=== PATIENT | male | born 1940 | race Caucasian/White ===

== ENCOUNTER 2019-11-04 07:43 | Inpatient (IN) | payer OTHER ==
[~2019-11-04] VITALS: Ht 182.9 cm; Wt 90.7 kg
[~2019-11-04 07:43] MED LIST: ABAC300; ACID REDUCER 1150 MG PO; ARIP10 PO; ATOR40TA PO; Alprazolam1 MG PO; CEFP200 PO; CEFU500 PO; CELE200 PO; CEPH500 PO; CHOL10002; CODACE30 PO; DOCSEN; DOCU100 PO; DULO60 PO; DULOXETINE HCL60 MG PO; FENO160 PO; FURO40 PO; GAVILYTE-G SO4000 ML PO; HEARTBURN RELI150 MG PO; MAGCHL64ER; MAGCHL64ER PO; METF500 PO; METO100ER; METO50ER PO; Metformin HCl1000 MG PO; NIACIN ER1000 MG PO; OXYC10ER PO; OXYC10TA19; Oxybutynin Chlo15 MG PO; Oxybutynin Chlor5 M1 PO; PIOG15 PO; PIOGLITAZONE-M1 EAC1 PO; POTCHL10ER PO; QUIN10 PO; Quinapril HCl10 MG PO; Simvastatin40 MG PO; Synthroid25 MCG PO; TRAZ50; TRAZ50 PO; Toprol Xl50 MG PO; Triamterene W/1 EACH; Ultram50 MG PO; VITAMIN D31000 UNI1 PO; WARF5; WARF5 PO
[2019-11-04 08:16] LABS: BASOPHILS ABSOLUTE AUTO 0.01 K/mm3 (0.00-0.23); BASOPHILS PERCENT AUTO 0 % (0-2); EOSINOPHILS ABSOLUTE AUTO 0.08 K/mm3 (0.00-0.68); EOSINOPHILS PERCENT AUTO 1 % (0-6); Hemoglobin 13.6 g/dL (13.5-17.5); IMMATURE GRAN ABSOLUTE AUTO 0.56 K/mm3 (0.00-0.10); IMMATURE GRAN PERCENT AUTO 5 % (0-1); LYMPHOCYTES ABSOLUTE AUTO 2.17 K/mm3 (0.84-5.20); LYMPHOCYTES PERCENT AUTO 20 % (21-46); MONOCYTES ABSOLUTE AUTO 3.39 K/mm3 (0.16-1.47); MONOCYTES PERCENT AUTO 31 % (4-13); Mean Corpuscular HGB Conc 31.6 g/dL (31.5-36.5); Mean Corpuscular Volume 92 fL (80-100); Mean Platelet Volume 10.4 fL (9.1-12.4); NEUTROPHILS ABSOLUTE AUTO 4.64 K/mm3 (1.96-9.15); NEUTROPHILS PERCENT AUTO 43 % (41-73); Platelet Count 146 K/mm3 (150-400); RDW Coefficient Variation 13.2 % (11.7-14.2); RDW Standard Deviation 44.5 fL (35.1-46.3); Red Blood Cell Count 4.69 M/mm3 (4.30-5.90); White Blood Cell Count 10.85 K/mm3 (4.00-11.30)
[2019-11-04 08:29] LABS: International Normalized Ratio 1.33
[2019-11-04 08:32] LABS: Anion Gap 6 mmol/L (6-16); Blood Urea Nitrogen 15 mg/dL (8-24); Bun/Creatinine Ratio 17.1 (12.0-20.0); CO2, Blood 27 mmol/L (21-32); Calcium, Blood 9.7 mg/dL (8.5-10.1); Chloride, Blood 106 mmol/L (98-108); Creatinine, Blood 0.88 mg/dL (0.60-1.20); Glomerular Filtration Rate >60 (60-); Glucose, Blood 107 mg/dL (70-99); Potassium, Blood 4.4 mmol/L (3.5-5.5); Sodium, Blood 139 mmol/L (136-145)
[2019-11-04] MEDS ORDERED: Vitamin B-121000 MCG PO (12:07)
[2019-11-04] MEDS ORDERED: OMEP20ER PO (12:07)
[2019-11-04 17:19] LABS: Hematocrit 42.1 % (37.0-53.0); Hemoglobin 13.4 g/dL (13.5-17.5)
--- NOTE | 2019-11-04 17:40 | NUR ---
SUMMARY REPOSITIONED IN BED, EATING DINNER, TOLERATING WELL, DENIES ANY SOB, STATES HE'S NOT TAKING DEEPER BREATHS DUE TO INCREASED PAIN WITH INHALATION, DENIES ANY NEED FOR PAIN MEDS AT THIS TIME, NON ADHERENT DSG APPLIED TO SKIN TEAR ON L WRIST, SATE 98% ON 3L O2 VIA NC, NO DYSPNEA NOTED, NOT ACUTE CHANGES THIS SHIFT.
--- NOTE | 2019-11-05 04:15 | NUR ---
SHIFT SUMMARY PT AAOX4. PT DENIES NEEDING ANYTHING FOR PAIN BUT IS UNCOMFORTABLE WITH REPOSITIONING. CRADLING LEFT SIDE. GUARDING WITH MOVEMENT. DENIES SOB DURING SHIFT. TOLERATING PO FLUIDS WELL, NEEDS ASSISTANCE WITH CUP AT TIMES. INC OF VOID DURING SHIFT. USES CALL LIGHT APPROPRIATLY. 3L 02 ON DURING SHIFT. SATS REMAIN ABOVE 92%
[2019-11-05 04:40] LABS: Hematocrit 38.7 % (37.0-53.0); Hemoglobin 12.4 g/dL (13.5-17.5); Mean Corpuscular Volume 90 fL (80-100); Mean Platelet Volume 10.2 fL (9.1-12.4); Platelet Count 111 K/mm3 (150-400); RDW Coefficient Variation 13.1 % (11.7-14.2); RDW Standard Deviation 43.2 fL (35.1-46.3); Red Blood Cell Count 4.28 M/mm3 (4.30-5.90); White Blood Cell Count 12.76 K/mm3 (4.00-11.30)
[2019-11-05 04:51] LABS: Anion Gap 6 mmol/L (6-16); Blood Urea Nitrogen 15 mg/dL (8-24); Bun/Creatinine Ratio 18.1 (12.0-20.0); CO2, Blood 26 mmol/L (21-32); Chloride, Blood 103 mmol/L (98-108); Creatinine, Blood 0.83 mg/dL (0.60-1.20); Glomerular Filtration Rate >60 (60-); Glucose, Blood 124 mg/dL (70-99); Potassium, Blood 4.4 mmol/L (3.5-5.5); Sodium, Blood 135 mmol/L (136-145)
[2019-11-05 04:57] LABS: International Normalized Ratio 1.32; Prothrombin Time Results 13.9 Sec (9.7-11.5)
--- NOTE | 2019-11-05 09:38 | NUR ---
0911 NOTIFIED BY PCU CONFIDENTIAL INVESTIGATOR THAT PTS HR IS 140 AND HAD 9 BEAT RUN OF VTACH. PT DENIES ANY CHANGE IN HOW HE IS FEELING. VS CHECKED. PT 3 PERSON MAX ASSIST BACK TO BED. DR TRIANA NOTIFIED AND NEW ORDERS RECEIVED
--- NOTE | 2019-11-05 17:33 | NUR ---
SUMMARY PT TELLS ME HE FEELS A LITTLE LESS PAINFUL TODAY THEN HE FELT YESTERDAY. PT REQUIRS MAX ASSIST TO REPOSITION IN BED. PT DECLINES A SLING TO LEFT ARM. INCONTINENT OF URINE. PT GOOD EFFORT ON INCENTIVE SPIROMETER WHEN ASKED TO USE
--- NOTE | 2019-11-06 04:10 | NUR ---
SHIFT SUMMARY PT A/O X3-4. TOLERATING PO INTAKE. ATTENS IN PLACE FOR INCONTINENCE, CHANGED PRN. PAIN MANAGED WITH PO PAIN MED PER ORDERS. PT HAS BEEN USING 2L 02 NC TO MAINTAIN O2 SAT ABOVE 92%. BIOX IN PLACE AT BEDSIDE. TELE ON DURING THE NIGHT; PT HAS BEEN IN A-FIB PER BOARD MILL SUPERVISOR. NO ACUTE CHANGES OVERNIGHT.
[2019-11-06 05:01] LABS: BASOPHILS ABSOLUTE AUTO 0.02 K/mm3 (0.00-0.23); BASOPHILS PERCENT AUTO 0 % (0-2); EOSINOPHILS ABSOLUTE AUTO 0.01 K/mm3 (0.00-0.68); EOSINOPHILS PERCENT AUTO 0 % (0-6); Hematocrit 37.4 % (37.0-53.0); Hemoglobin 11.9 g/dL (13.5-17.5); IMMATURE GRAN ABSOLUTE AUTO 0.33 K/mm3 (0.00-0.10); IMMATURE GRAN PERCENT AUTO 3 % (0-1); LYMPHOCYTES ABSOLUTE AUTO 1.95 K/mm3 (0.84-5.20); LYMPHOCYTES PERCENT AUTO 15 % (21-46); MONOCYTES ABSOLUTE AUTO 6.47 K/mm3 (0.16-1.47); MONOCYTES PERCENT AUTO 50 % (4-13); Mean Corpuscular HGB 28.7 pg (26.0-34.0); Mean Corpuscular HGB Conc 31.8 g/dL (31.5-36.5); Mean Corpuscular Volume 90 fL (80-100); Mean Platelet Volume 10.6 fL (9.1-12.4); NEUTROPHILS ABSOLUTE AUTO 4.09 K/mm3 (1.96-9.15); NEUTROPHILS PERCENT AUTO 32 % (41-73); Platelet Count 95 K/mm3 (150-400); RDW Standard Deviation 42.6 fL (35.1-46.3); Red Blood Cell Count 4.14 M/mm3 (4.30-5.90); White Blood Cell Count 12.87 K/mm3 (4.00-11.30)
[2019-11-06 05:20] LABS: International Normalized Ratio 1.21; Prothrombin Time Results 12.8 Sec (9.7-11.5)
[2019-11-06 05:24] LABS: Anion Gap 5 mmol/L (6-16); Blood Urea Nitrogen 17 mg/dL (8-24); Bun/Creatinine Ratio 19.8 (12.0-20.0); CO2, Blood 28 mmol/L (21-32); Calcium, Blood 9.2 mg/dL (8.5-10.1); Chloride, Blood 101 mmol/L (98-108); Creatinine, Blood 0.86 mg/dL (0.60-1.20); Glomerular Filtration Rate >60 (60-); Glucose, Blood 114 mg/dL (70-99); Potassium, Blood 4.5 mmol/L (3.5-5.5); Sodium, Blood 134 mmol/L (136-145)
--- NOTE | 2019-11-06 13:00 | NUR ---
PT NOTED TO HAVE INCREASED HEART RATE RANGING FROM 140-160 PER TELE. PT ASSYMPTOMATIC. BP 132/82. DR GRIDER NOTIFIED, SEE ORDERS. PT MED WITH IV MEDICATION ORDERED. DISCUSSED WITH FIRER LOW PRESSURE. FIRER LOW PRESSURE REPORTED PT HAVING 18 BEAT RUN OF V TACH, WILL DISCUSS WITH TELE AND
--- NOTE | 2019-11-06 13:19 | NUR ---
PT CONT TO BE ASSYMPTOMATIC. PT HR DOWN TO 105-115. MANUAL BP 130/80. DR NOTIFIED OF PT OF PT'S VS AND RUN OF V-TACH. DISCUSSED LABS FROM THIS AM. REPORTS TO ADD MAGNESIUM TO AM LABS. SEE ORDER. LAB NOTIFIED.
--- NOTE | 2019-11-06 16:50 | NUR ---
SHIFT SUMMARY PT BEEN EATING AND DRINKING, VOIDING. PT BEEN REPOSITIONED MULT TIMES. PT WORKED WITH OT THIS AFTERNOON, REFUSED PHYSICAL THERAPY THIS AM. PT HAD INCREASED HR WHICH PT WAS MEDICATED WITH IV LOPRESSOR FOR. PT TOLERATED WELL AND HR DECREASED. PT HAD MULT DR TO SEE PT TODAY. PT BEEN RESTING QUIETLY WHEN NOT DISTURBED. CALL LIGHT IN REACH.
[2019-11-07 04:37] LABS: BASOPHILS ABSOLUTE AUTO 0.02 K/mm3 (0.00-0.23); BASOPHILS PERCENT AUTO 0 % (0-2); EOSINOPHILS ABSOLUTE AUTO 0.09 K/mm3 (0.00-0.68); EOSINOPHILS PERCENT AUTO 1 % (0-6); Hematocrit 38.3 % (37.0-53.0); Hemoglobin 12.1 g/dL (13.5-17.5); IMMATURE GRAN ABSOLUTE AUTO 0.36 K/mm3 (0.00-0.10); IMMATURE GRAN PERCENT AUTO 3 % (0-1); LYMPHOCYTES ABSOLUTE AUTO 2.33 K/mm3 (0.84-5.20); LYMPHOCYTES PERCENT AUTO 17 % (21-46); MONOCYTES ABSOLUTE AUTO 4.57 K/mm3 (0.16-1.47); MONOCYTES PERCENT AUTO 33 % (4-13); Mean Corpuscular HGB 28.5 pg (26.0-34.0); Mean Corpuscular HGB Conc 31.6 g/dL (31.5-36.5); Mean Corpuscular Volume 90 fL (80-100); Mean Platelet Volume 10.9 fL (9.1-12.4); NEUTROPHILS ABSOLUTE AUTO 6.36 K/mm3 (1.96-9.15); NEUTROPHILS PERCENT AUTO 46 % (41-73); Platelet Count 91 K/mm3 (150-400); RDW Coefficient Variation 12.9 % (11.7-14.2); RDW Standard Deviation 42.5 fL (35.1-46.3); Red Blood Cell Count 4.25 M/mm3 (4.30-5.90); White Blood Cell Count 13.73 K/mm3 (4.00-11.30)
[2019-11-07 04:49] LABS: International Normalized Ratio 1.28; Prothrombin Time Results 13.5 Sec (9.7-11.5)
[2019-11-07 04:53] LABS: Alanine Aminotransfer (ALT/SGP 19 U/L (12-78); Albumin, Blood 3.1 g/dL (3.4-5.0); Albumin/Globulin Ratio 0.8 (0.8-1.8); Alk Phos 45 U/L (50-136); Anion Gap 5 mmol/L (6-16); Aspartate Aminotrans (AST/SGOT 16 U/L (12-37); Bilirubin, Total 0.8 mg/dL (0.1-1.0); Blood Urea Nitrogen 16 mg/dL (8-24); Bun/Creatinine Ratio 18.3 (12.0-20.0); CO2, Blood 29 mmol/L (21-32); Calcium, Blood 9.1 mg/dL (8.5-10.1); Chloride, Blood 98 mmol/L (98-108); Creatinine, Blood 0.88 mg/dL (0.60-1.20); Globulin, Blood 3.7 g/dL (2.2-4.0); Glomerular Filtration Rate >60 (60-); Glucose, Blood 109 mg/dL (70-99); Potassium, Blood 4.5 mmol/L (3.5-5.5); Sodium, Blood 132 mmol/L (136-145); Total Protein, Blood 6.8 g/dL (6.4-8.2)
[2019-11-07 04:59] LABS: Percent Saturation 10.2 % (20.0-50.0)
--- NOTE | 2019-11-07 05:11 | NUR ---
SHIFT SUMMARY PT IS A/OX4 DURING THE SHIFT. PT C/O PAIN MOSTLY WHEN BEING CHANGED/REPOSTIONED. MED PER ORDERS. ATTENS CHANGED PRN DURING THE SHIFT. PT REFUSED MUCH REPOSITIONING DURING THE NIGHT. ENC DEEP BREATHING. O2 IN USE TO MAINTAIN ABOVE 92%. BIOX AT BEDSIDE. PER TELE, PT HAS BEEN IN A-FIB WITH AVG 95BPM. TOLERATING PO INTAKE W/O NAUSEA. CURRENTLY RESTING QUIETLY IN BED. DENIES FURTHER NEEDS. CALL LIGHT IN REACH.
--- NOTE | 2019-11-07 08:31 | NUR ---
TELE REPORTED HR UP TO 130-150. PT EATING. PT ASSYMPTOMATIC. PT HAD INCREASED HR YESTERDAY WELL WHEN EATING. PT REPORTS PAIN DOING FINE AT THIS TIME. PT HR CAME DOWN SOME TO 1 TEENS TO 130. NOTIFIED, DISCUSSED PT'S STATUS. REPORTS TO INCREASE PO MED, SEE ORDER.
--- NOTE | 2019-11-07 10:30 | NUR ---
TELE REPORTS PT HR AFIB 90'S.
--- NOTE | 2019-11-07 17:00 | NUR ---
SHIFT SUMMARY PT EATING AND DRINKING. PT NOTED TO PASS GAS WHEN PT WAS BEING CHANGED. PT BEEN REPOSTIONED MULT DIMAS TODAY. PT CONT TO HAVE PROTECTIVE DRESSINGS IN PLACE TO BOTTOM AND HEELS. PT BEEN ASSISTED WITH ADL'S PRN. PT CALL LIGHT IN REACH. MAIKEL BANKS TO SEE PT TODAY.
[2019-11-08 04:30] LABS: BASOPHILS ABSOLUTE AUTO 0.02 K/mm3 (0.00-0.23); BASOPHILS PERCENT AUTO 0 % (0-2); EOSINOPHILS ABSOLUTE AUTO 0.07 K/mm3 (0.00-0.68); EOSINOPHILS PERCENT AUTO 1 % (0-6); Hematocrit 34.3 % (37.0-53.0); Hemoglobin 11.3 g/dL (13.5-17.5); IMMATURE GRAN ABSOLUTE AUTO 0.45 K/mm3 (0.00-0.10); IMMATURE GRAN PERCENT AUTO 4 % (0-1); LYMPHOCYTES ABSOLUTE AUTO 1.55 K/mm3 (0.84-5.20); LYMPHOCYTES PERCENT AUTO 14 % (21-46); MONOCYTES PERCENT AUTO 43 % (4-13); Mean Corpuscular HGB 28.9 pg (26.0-34.0); Mean Corpuscular HGB Conc 32.9 g/dL (31.5-36.5); Mean Corpuscular Volume 88 fL (80-100); Mean Platelet Volume 11.6 fL (9.1-12.4); NEUTROPHILS PERCENT AUTO 38 % (41-73); Platelet Count 87 K/mm3 (150-400); RDW Coefficient Variation 12.9 % (11.7-14.2); RDW Standard Deviation 41.6 fL (35.1-46.3); Red Blood Cell Count 3.91 M/mm3 (4.30-5.90); White Blood Cell Count 10.89 K/mm3 (4.00-11.30)
[2019-11-08 04:42] LABS: International Normalized Ratio 1.39; Prothrombin Time Results 14.6 Sec (9.7-11.5)
[2019-11-08 04:52] LABS: Alanine Aminotransfer (ALT/SGP 23 U/L (12-78); Albumin, Blood 2.9 g/dL (3.4-5.0); Albumin/Globulin Ratio 0.8 (0.8-1.8); Alk Phos 46 U/L (50-136); Anion Gap 4 mmol/L (6-16); Aspartate Aminotrans (AST/SGOT 22 U/L (12-37); Bilirubin, Total 0.8 mg/dL (0.1-1.0); Blood Urea Nitrogen 18 mg/dL (8-24); Bun/Creatinine Ratio 21.9 (12.0-20.0); CO2, Blood 29 mmol/L (21-32); Calcium, Blood 8.7 mg/dL (8.5-10.1); Chloride, Blood 99 mmol/L (98-108); Creatinine, Blood 0.82 mg/dL (0.60-1.20); Globulin, Blood 3.7 g/dL (2.2-4.0); Glomerular Filtration Rate >60 (60-); Glucose, Blood 110 mg/dL (70-99); Potassium, Blood 4.3 mmol/L (3.5-5.5); Sodium, Blood 132 mmol/L (136-145); Total Protein, Blood 6.6 g/dL (6.4-8.2)
--- NOTE | 2019-11-08 05:30 | NUR ---
ASSUMED CARE AT 1900. DOZING AT INTERVALS. MEDICATED TO GIVE COMFORT FOR TURNING,. VERY PAINFUL FOR ANY TYPE OF MOVEMENT.POOR EFFORT FOR ACTIVE ROM. DOZING OFF AND SLEEPING SOUNDLY WHEN LEFT UNDISTURBED. VERY EAGER TO USE IS ANAD 1000 WAS ACHIEVED AND NO IMPROVEMENT WITH ALL HIS EFFORT THRU NOC. REPORTED AF 80-106. PERIPHERAL PULSED WNL SOME SWELLING OF LT ARM. PROTECTIVE MEPILEX ON COCCYX AND HEELS. NOT REMOVED. VERY DIMINISHED BASES BUT LUNGS SEEM CLEAR . CONSTANT IS DIRECTED AND FOLLOWS W / EFFORT. FEW PUDDINGS AND FLUIDS TAKEN . ASSISTED . AND ASPIRATION PRECAUTIONS. VERY PAINFUL REPOSITIONING
--- NOTE | 2019-11-08 13:27 | NUR ---
TELE-AFIB CHANGES RECIEVED CALL FROM TERESA AT TELE REPORTS PATIENT TRENDING UP FOR AFIB 130 HR THIS MORNING AND 150-160 AROUND 12 NOON. VS TAKEN ELEVATED BP AND PT DENIES CHEST PAIN, SOB, NUMBNESS, TINGLINGING SESNATION, DIZZINESS AND NAUSEA. CALLED DR. GRIDER REPORTED CHANGES, SHE ORDERED LABETOLOL, 10MG TO GIVE NOW. ADMINSTERED MED. PT VS STABLE AT THE MOMENT. SLEEPING. CALLED TELE, SPOKE WITH CARMEN, STATING PT IS ON AFIB BUNDLE BRANCK BLOCK OF 100.
--- NOTE | 2019-11-08 18:38 | NUR ---
SHIFT SUMMARY PT AOX3 THIS MORNING, MILD CONFUSION BEFORE DINNER. PT CONSISTENTLY C/O OF PAIN ON L SHOULDER/RIB/SCAPULA WITH MOVEMENT. PT ABLE TO SIT ON THE EDGE OF THE BED WITH PHYSICAL THERAPIST BUT UNABLE TO TOLERATE AMBULATION. PAIN MANAGE WITH MEDS. HE STILL ON TELE, AFIB TRENDING HEART RATE FROM 130 IN THE MORNING AND 150-160'S AROUND NOON. PT DENIES CHEST PAIN, SOB, DIZZINESS, NAUSEA, VOMITING, NUMBNESS AND TINGLING SENSATION. I CALLED DR. GRIDER, LABETOLOL ORDERED TO BE ADMINISTED, THEN CALLED PAPER REELER REPORTING HE WAS ON AFIB BUNDLE BRANCH BLOCK OF 100 HR. WARFARIN WAS RESUMED IN THE AFTERNOON, PT'S INR OF 1.3. CBG WNL, COVERAGE NOT IND TO GIVE HUMALOG.
[2019-11-09 04:05] LABS: BASOPHILS ABSOLUTE AUTO 0.02 K/mm3 (0.00-0.23); BASOPHILS PERCENT AUTO 0 % (0-2); EOSINOPHILS ABSOLUTE AUTO 0.12 K/mm3 (0.00-0.68); EOSINOPHILS PERCENT AUTO 1 % (0-6); Hematocrit 35.4 % (37.0-53.0); Hemoglobin 11.1 g/dL (13.5-17.5); IMMATURE GRAN ABSOLUTE AUTO 0.32 K/mm3 (0.00-0.10); IMMATURE GRAN PERCENT AUTO 3 % (0-1); LYMPHOCYTES ABSOLUTE AUTO 1.59 K/mm3 (0.84-5.20); LYMPHOCYTES PERCENT AUTO 15 % (21-46); MONOCYTES ABSOLUTE AUTO 4.43 K/mm3 (0.16-1.47); MONOCYTES PERCENT AUTO 42 % (4-13); Mean Corpuscular HGB 28.2 pg (26.0-34.0); Mean Corpuscular HGB Conc 31.4 g/dL (31.5-36.5); Mean Corpuscular Volume 90 fL (80-100); Mean Platelet Volume 11.3 fL (9.1-12.4); NEUTROPHILS ABSOLUTE AUTO 4.05 K/mm3 (1.96-9.15); NEUTROPHILS PERCENT AUTO 39 % (41-73); Platelet Count 105 K/mm3 (150-400); RDW Coefficient Variation 12.8 % (11.7-14.2); RDW Standard Deviation 42.4 fL (35.1-46.3); Red Blood Cell Count 3.93 M/mm3 (4.30-5.90); White Blood Cell Count 10.53 K/mm3 (4.00-11.30)
[2019-11-09 04:17] LABS: International Normalized Ratio 1.6; Prothrombin Time Results 16.7 Sec (9.7-11.5)
[2019-11-09 04:27] LABS: Anion Gap 4 mmol/L (6-16); Blood Urea Nitrogen 17 mg/dL (8-24); Bun/Creatinine Ratio 20.9 (12.0-20.0); CO2, Blood 30 mmol/L (21-32); Calcium, Blood 9.1 mg/dL (8.5-10.1); Chloride, Blood 97 mmol/L (98-108); Creatinine, Blood 0.81 mg/dL (0.60-1.20); Glomerular Filtration Rate >60 (60-); Glucose, Blood 115 mg/dL (70-99); Potassium, Blood 4.5 mmol/L (3.5-5.5); Sodium, Blood 131 mmol/L (136-145)
--- NOTE | 2019-11-09 05:30 | NUR ---
SHIFT SUMMARY RIB/SCAPULA FX, A/O X4 W/ INTERMITTENT CONFUSION, VSS, NON AMBULATORY, PAIN INCREASES W/ REPOSITIONING, PADDING PLACED UNDER RE PROMINENCES. TOLERATING PO, VOIDING IN DEPENDS, PAIN MANAGED PER EMAR. WILL CONTINUE TO MONITOR AND REPORT TO ONCOMING DAY RN.
--- NOTE | 2019-11-09 10:21 | NUR ---
Patient c/o of left sided chest pain. Pt states pain has been there x2 days and feels different from rib pain. Hospitalist notified. Stat EKG performed, orders for Troponin series and Nitroglycerin obtained.
--- NOTE | 2019-11-09 19:30 | NUR ---
SHIFT SUMMARY PT AOX3, INTERMITTENT CONFUSION. PT C/O OF CHEST PAIN THIS MORNING, BUT UNABLE TO DETERMINE IF RIBS PAIN OR CHEST. HX OF AFIB AND HE IS ON TELE. CALLED THE PHYSICIAN, EKG STAT AND NITRO WAS ADMINSTERED. TROPONIN WNL. PT VSS NORMAL. CBG WAS 117. PT STILL IN A LOT OF PAIN WITH MOVEMENT. PAIN MED GIVEN AT DINNER.
[2019-11-10 04:01] LABS: BASOPHILS ABSOLUTE AUTO 0.02 K/mm3 (0.00-0.23); BASOPHILS PERCENT AUTO 0 % (0-2); EOSINOPHILS ABSOLUTE AUTO 0.01 K/mm3 (0.00-0.68); EOSINOPHILS PERCENT AUTO 0 % (0-6); Hematocrit 35.3 % (37.0-53.0); Hemoglobin 11.2 g/dL (13.5-17.5); IMMATURE GRAN ABSOLUTE AUTO 0.44 K/mm3 (0.00-0.10); IMMATURE GRAN PERCENT AUTO 4 % (0-1); LYMPHOCYTES ABSOLUTE AUTO 1.75 K/mm3 (0.84-5.20); LYMPHOCYTES PERCENT AUTO 16 % (21-46); MONOCYTES ABSOLUTE AUTO 4.66 K/mm3 (0.16-1.47); MONOCYTES PERCENT AUTO 42 % (4-13); Mean Corpuscular HGB 28.4 pg (26.0-34.0); Mean Corpuscular HGB Conc 31.7 g/dL (31.5-36.5); Mean Corpuscular Volume 89 fL (80-100); Mean Platelet Volume 11.2 fL (9.1-12.4); NEUTROPHILS ABSOLUTE AUTO 4.33 K/mm3 (1.96-9.15); NEUTROPHILS PERCENT AUTO 39 % (41-73); Platelet Count 141 K/mm3 (150-400); RDW Coefficient Variation 12.8 % (11.7-14.2); RDW Standard Deviation 42.2 fL (35.1-46.3); Red Blood Cell Count 3.95 M/mm3 (4.30-5.90); White Blood Cell Count 11.21 K/mm3 (4.00-11.30)
[2019-11-10 04:15] LABS: International Normalized Ratio 1.82; Prothrombin Time Results 18.8 Sec (9.7-11.5)
[2019-11-10 04:22] LABS: Alanine Aminotransfer (ALT/SGP 21 U/L (12-78); Albumin, Blood 2.8 g/dL (3.4-5.0); Albumin/Globulin Ratio 0.7 (0.8-1.8); Alk Phos 52 U/L (50-136); Anion Gap 4 mmol/L (6-16); Aspartate Aminotrans (AST/SGOT 18 U/L (12-37); Bilirubin, Total 0.8 mg/dL (0.1-1.0); Blood Urea Nitrogen 16 mg/dL (8-24); Bun/Creatinine Ratio 19.6 (12.0-20.0); CO2, Blood 29 mmol/L (21-32); Calcium, Blood 8.7 mg/dL (8.5-10.1); Chloride, Blood 99 mmol/L (98-108); Creatinine, Blood 0.82 mg/dL (0.60-1.20); Globulin, Blood 3.8 g/dL (2.2-4.0); Glomerular Filtration Rate >60 (60-); Glucose, Blood 120 mg/dL (70-99); Potassium, Blood 4.3 mmol/L (3.5-5.5); Sodium, Blood 132 mmol/L (136-145); Total Protein, Blood 6.6 g/dL (6.4-8.2)
--- NOTE | 2019-11-10 06:30 | NUR ---
SUMMARY PT REQUIRED DILAUDID DOSING TO ALLOW FOR ENOUGH PAIN CONTROL TO REPOSITION. PT RESTING COMFORTABLY AFTER .
--- NOTE | 2019-11-10 15:57 | NUR ---
DC TO [facility] VIA W/C REPORT CALLED TO RN @ FACILITY. SCRIPT SENT.
== END 2019-11-10 16:00 | DRG 200 ==
LOC: ER 07:43 → SURS 13:18
PROVIDERS: Emergency Medicine; Internal Medicine; Nurse Practitioner Acute Care; ADMIT Surgery
DX: S27.2XXA Traumatic hemopneumothorax, initial encounter (principal); S22.050A Wedge compression fracture of T5-T6 vertebra, initial encounter for closed fracture; S22.42XA Multiple fractures of ribs, left side, initial encounter for closed fracture; D68.59 Other primary thrombophilia; I48.20 Chronic atrial fibrillation, unspecified; R04.89 Hemorrhage from other sites in respiratory passages; E03.9 Hypothyroidism, unspecified; E11.9 Type 2 diabetes mellitus without complications; F32.9 Major depressive disorder, single episode, unspecified; I10 Essential (primary) hypertension; K21.9 Gastro-esophageal reflux disease without esophagitis; S42.112A Displaced fracture of body of scapula, left shoulder, initial encounter for closed fracture; W19.XXXA Unspecified fall, initial encounter; Z79.01 Long term (current) use of anticoagulants; E86.0 Dehydration; E78.5 Hyperlipidemia, unspecified; I95.9 Hypotension, unspecified; G89.11 Acute pain due to trauma
CPT/HCPCS: 36415; 70450; 71045; 71046; 71250; 73010; 80048; 80053; 82728; 82947; 83540; 83550; 83735; 83880; 84484; 85014; 85018; 85025; 85027; 85610; 85730; 93005; 93010; 94762; 96361; 96374; 97110; 97162; 97166; 97530; 99285-25; A9270-GY; J1170; J3010; J7030; U0003

== ENCOUNTER → 2019-12-13 | Outpatient (CLI) | payer OTHER ==
[~2019-12-13] MED LIST changes: +OMEP20ER PO; +Vitamin B-121000 MCG PO
[2019-12-13 04:44] LABS: BASOPHILS ABSOLUTE AUTO 0.04 K/mm3 (0.00-0.23); BASOPHILS PERCENT AUTO 1 % (0-2); EOSINOPHILS ABSOLUTE AUTO 0.07 K/mm3 (0.00-0.68); EOSINOPHILS PERCENT AUTO 1 % (0-6); Hematocrit 39.7 % (37.0-53.0); Hemoglobin 12.3 g/dL (13.5-17.5); IMMATURE GRAN ABSOLUTE AUTO 0.24 K/mm3 (0.00-0.10); IMMATURE GRAN PERCENT AUTO 3 % (0-1); LYMPHOCYTES PERCENT AUTO 29 % (21-46); MONOCYTES ABSOLUTE AUTO 1.57 K/mm3 (0.16-1.47); MONOCYTES PERCENT AUTO 20 % (4-13); Mean Corpuscular Volume 90 fL (80-100); Mean Platelet Volume 10.7 fL (9.1-12.4); NEUTROPHILS ABSOLUTE AUTO 3.78 K/mm3 (1.96-9.15); NEUTROPHILS PERCENT AUTO 47 % (41-73); Platelet Count 171 K/mm3 (150-400); RDW Coefficient Variation 14.2 % (11.7-14.2); RDW Standard Deviation 47.2 fL (35.1-46.3)
[2019-12-13 05:10] LABS: Alanine Aminotransfer (ALT/SGP 13 U/L (12-78); Albumin, Blood 3.1 g/dL (3.4-5.0); Albumin/Globulin Ratio 0.8 (0.8-1.8); Alk Phos 100 U/L (50-136); Anion Gap 9 mmol/L (6-16); Aspartate Aminotrans (AST/SGOT 13 U/L (12-37); Bilirubin, Total 0.5 mg/dL (0.1-1.0); Blood Urea Nitrogen 16 mg/dL (8-24); Bun/Creatinine Ratio 17.9 (12.0-20.0); CO2, Blood 22 mmol/L (21-32); Chloride, Blood 104 mmol/L (98-108); Creatinine, Blood 0.89 mg/dL (0.60-1.20); Glomerular Filtration Rate >60 (60-); Glucose, Blood 81 mg/dL (70-99); Potassium, Blood 4.4 mmol/L (3.5-5.5); Sodium, Blood 135 mmol/L (136-145); Total Protein, Blood 7.1 g/dL (6.4-8.2)
[2019-12-13 05:18] LABS: Prothrombin Time Results 81.9 Sec (9.7-11.5)
[2019-12-13 05:20] LABS: International Normalized Ratio 8.65
== END | disposition home or self-care (01) ==
LOC: LAB UVN 04:35 → EDSTATUS 10:54
PROVIDERS: Family Medicine
DX: I48.20 Chronic atrial fibrillation, unspecified (principal); E11.9 Type 2 diabetes mellitus without complications; E03.8 Other specified hypothyroidism; I10 Essential (primary) hypertension
CPT/HCPCS: 80053; 84443; 85025; 85610

== ENCOUNTER → 2019-12-14 | Outpatient (CLI) | payer OTHER ==
[2019-12-14 05:44] LABS: Prothrombin Time Results >90.0 Sec (9.7-11.5)
[2019-12-14 05:46] LABS: International Normalized Ratio No Calc
== END | disposition home or self-care (01) ==
LOC: LAB UVN 05:07 → EDSTATUS 10:55
PROVIDERS: Family Medicine
DX: I48.20 Chronic atrial fibrillation, unspecified (principal)
CPT/HCPCS: 85610

== ENCOUNTER → 2019-12-15 | Outpatient (CLI) | payer OTHER ==
[2019-12-15 20:07] LABS: International Normalized Ratio 4.65; Prothrombin Time Results 45.6 Sec (9.7-11.5)
== END | disposition home or self-care (01) ==
LOC: EDSTATUS 10:56 → LAB UVN 18:43
PROVIDERS: Family Medicine
DX: I10 Essential (primary) hypertension (principal); I48.20 Chronic atrial fibrillation, unspecified
CPT/HCPCS: 85610

== ENCOUNTER → 2019-12-17 | Outpatient (CLI) | payer OTHER ==
[2019-12-17 05:50] LABS: International Normalized Ratio 3.41
== END | disposition home or self-care (01) ==
LOC: LAB UVN 05:15 → EDSTATUS 11:01
PROVIDERS: Family Medicine
DX: I48.20 Chronic atrial fibrillation, unspecified (principal)
CPT/HCPCS: 85610

== ENCOUNTER → 2019-12-24 | Outpatient (CLI) | payer OTHER ==
[2019-12-24 04:02] LABS: International Normalized Ratio 1.8; Prothrombin Time Results 18.6 Sec (9.7-11.5)
== END | disposition home or self-care (01) ==
LOC: LAB UVN 03:41 → EDSTATUS 11:03
PROVIDERS: Family Medicine
DX: I48.20 Chronic atrial fibrillation, unspecified (principal)
CPT/HCPCS: 85610

== ENCOUNTER → 2020-01-07 | Outpatient (CLI) | payer OTHER ==
[2020-01-07 06:01] LABS: BASOPHILS ABSOLUTE AUTO 0.01 K/mm3 (0.00-0.23); BASOPHILS PERCENT AUTO 0 % (0-2); EOSINOPHILS ABSOLUTE AUTO 0.03 K/mm3 (0.00-0.68); EOSINOPHILS PERCENT AUTO 0 % (0-6); Hemoglobin 11.4 g/dL (13.5-17.5); IMMATURE GRAN ABSOLUTE AUTO 0.09 K/mm3 (0.00-0.10); IMMATURE GRAN PERCENT AUTO 1 % (0-1); LYMPHOCYTES ABSOLUTE AUTO 1.95 K/mm3 (0.84-5.20); LYMPHOCYTES PERCENT AUTO 27 % (21-46); MONOCYTES ABSOLUTE AUTO 2.14 K/mm3 (0.16-1.47); MONOCYTES PERCENT AUTO 30 % (4-13); Mean Corpuscular HGB 27.8 pg (26.0-34.0); Mean Corpuscular HGB Conc 31.7 g/dL (31.5-36.5); Mean Corpuscular Volume 88 fL (80-100); Mean Platelet Volume 10.9 fL (9.1-12.4); NEUTROPHILS ABSOLUTE AUTO 2.94 K/mm3 (1.96-9.15); NEUTROPHILS PERCENT AUTO 41 % (41-73); Platelet Count 167 K/mm3 (150-400); RDW Standard Deviation 48.1 fL (35.1-46.3); White Blood Cell Count 7.16 K/mm3 (4.00-11.30)
[2020-01-07 06:09] LABS: Anion Gap 5 mmol/L (6-16); Blood Urea Nitrogen 18 mg/dL (8-24); Bun/Creatinine Ratio 21.9 (12.0-20.0); CO2, Blood 27 mmol/L (21-32); Calcium, Blood 8.7 mg/dL (8.5-10.1); Chloride, Blood 104 mmol/L (98-108); Creatinine, Blood 0.82 mg/dL (0.60-1.20); Glomerular Filtration Rate >60 (60-); Glucose, Blood 69 mg/dL (70-99); Potassium, Blood 4.5 mmol/L (3.5-5.5); Sodium, Blood 136 mmol/L (136-145)
== END | disposition home or self-care (01) ==
LOC: LAB UVN 05:54 → EDSTATUS 15:05
PROVIDERS: Nurse Practitioner Adult Health
DX: S27.2XXD Traumatic hemopneumothorax, subsequent encounter (principal); S22.43XD Multiple fractures of ribs, bilateral, subsequent encounter for fracture with routine healing
CPT/HCPCS: 80048; 85025

== ENCOUNTER → 2020-01-09 | Outpatient (CLI) | payer OTHER ==
[2020-01-09 20:23] LABS: International Normalized Ratio 2.94; Prothrombin Time Results 29.6 Sec (9.7-11.5)
== END | disposition home or self-care (01) ==
LOC: EDSTATUS 14:39 → LAB UVN 18:59
PROVIDERS: Family Medicine
DX: I48.20 Chronic atrial fibrillation, unspecified (principal)
CPT/HCPCS: 85610

== ENCOUNTER → 2020-01-17 | Outpatient (CLI) | payer OTHER ==
[2020-01-17 07:23] LABS: International Normalized Ratio 1.86; Prothrombin Time Results 19.2 Sec (9.7-11.5)
== END | disposition home or self-care (01) ==
LOC: LAB UVN 06:00 → EDSTATUS 14:40
PROVIDERS: Family Medicine
DX: R79.1 Abnormal coagulation profile (principal)
CPT/HCPCS: 85610

== ENCOUNTER → 2020-01-26 | Outpatient (CLI) | payer OTHER ==
[2020-01-26 13:48] LABS: International Normalized Ratio 2.07; Prothrombin Time Results 21.3 Sec (9.7-11.5)
== END | disposition home or self-care (01) ==
LOC: LAB UVN 12:45 → EDSTATUS 14:41
PROVIDERS: Family Medicine
DX: I48.20 Chronic atrial fibrillation, unspecified (principal)
CPT/HCPCS: 85610

== ENCOUNTER → 2020-02-04 | Outpatient (CLI) | payer OTHER ==
[2020-02-04 07:06] LABS: International Normalized Ratio 1.5; Prothrombin Time Results 15.7 Sec (9.7-11.5)
== END | disposition home or self-care (01) ==
LOC: LAB UVN 05:10 → EDSTATUS 14:43
PROVIDERS: Family Medicine
DX: S42.112D Displaced fracture of body of scapula, left shoulder, subsequent encounter for fracture with routine healing (principal); I48.20 Chronic atrial fibrillation, unspecified
CPT/HCPCS: 85610

== ENCOUNTER → 2020-02-11 | Outpatient (CLI) | payer OTHER ==
[2020-02-11 08:01] LABS: International Normalized Ratio 1.41; Prothrombin Time Results 14.8 Sec (9.7-11.5)
== END | disposition home or self-care (01) ==
LOC: LAB UVN 07:41 → EDSTATUS 13:30
PROVIDERS: Family Medicine
DX: I48.20 Chronic atrial fibrillation, unspecified (principal)
CPT/HCPCS: 85610

== ENCOUNTER → 2020-02-18 | Outpatient (CLI) | payer OTHER ==
[2020-02-18 05:59] LABS: International Normalized Ratio 2.05; Prothrombin Time Results 21.1 Sec (9.7-11.5)
== END | disposition home or self-care (01) ==
LOC: LAB UVN 04:05 → EDSTATUS 13:34
PROVIDERS: Family Medicine
DX: I48.20 Chronic atrial fibrillation, unspecified (principal); I10 Essential (primary) hypertension
CPT/HCPCS: 85610

== ENCOUNTER → 2020-02-25 | Outpatient (CLI) | payer OTHER ==
[2020-02-25 05:53] LABS: International Normalized Ratio 3.04; Prothrombin Time Results 30.5 Sec (9.7-11.5)
== END | disposition home or self-care (01) ==
LOC: LAB UVN 05:32 → EDSTATUS 13:37
PROVIDERS: Family Medicine
DX: I10 Essential (primary) hypertension (principal); I48.20 Chronic atrial fibrillation, unspecified
CPT/HCPCS: 85610

== ENCOUNTER 2020-04-14 12:58 | Emergency (ER) | payer OTHER ==
[~2020-04-14] VITALS: Ht 188 cm; Wt 83.9 kg
[2020-04-14 13:45] LABS: BASOPHILS ABSOLUTE AUTO 0.02 K/mm3 (0.00-0.23); BASOPHILS PERCENT AUTO 0 % (0-2); EOSINOPHILS ABSOLUTE AUTO 0.03 K/mm3 (0.00-0.68); EOSINOPHILS PERCENT AUTO 0 % (0-6); Hematocrit 36.4 % (37.0-53.0); Hemoglobin 11.9 g/dL (13.5-17.5); IMMATURE GRAN ABSOLUTE AUTO 0.37 K/mm3 (0.00-0.10); IMMATURE GRAN PERCENT AUTO 4 % (0-1); LYMPHOCYTES ABSOLUTE AUTO 2.29 K/mm3 (0.84-5.20); LYMPHOCYTES PERCENT AUTO 21 % (21-46); MONOCYTES PERCENT AUTO 24 % (4-13); Mean Corpuscular HGB 28.8 pg (26.0-34.0); Mean Corpuscular HGB Conc 32.7 g/dL (31.5-36.5); Mean Corpuscular Volume 88 fL (80-100); Mean Platelet Volume 10.8 fL (9.1-12.4); NEUTROPHILS ABSOLUTE AUTO 5.41 K/mm3 (1.96-9.15); NEUTROPHILS PERCENT AUTO 50 % (41-73); Platelet Count 233 K/mm3 (150-400); RDW Coefficient Variation 14.2 % (11.7-14.2); RDW Standard Deviation 45.9 fL (35.1-46.3); Red Blood Cell Count 4.13 M/mm3 (4.30-5.90); White Blood Cell Count 10.72 K/mm3 (4.00-11.30)
[2020-04-14 13:54] LABS: Albumin/Globulin Ratio 0.7 (0.8-1.8); Bilirubin, Total 0.6 mg/dL (0.1-1.0); Bun/Creatinine Ratio 19.4 (12.0-20.0); Calcium, Blood 8.9 mg/dL (8.5-10.1); Creatinine, Blood 1.34 mg/dL (0.60-1.20); Globulin, Blood 4.3 g/dL (2.2-4.0); Potassium, Blood 5.4 mmol/L (3.5-5.5); Total Protein, Blood 7.3 g/dL (6.4-8.2)
[2020-04-14 14:01] LABS: International Normalized Ratio 2.81; Prothrombin Time Results 28.4 Sec (9.7-11.5)
== END 2020-04-14 17:14 | disposition short-term general hospital (02) ==
LOC: ER 12:58
PROVIDERS: Emergency Medicine
DX: S06.5X9A Traumatic subdural hemorrhage with loss of consciousness of unspecified duration, initial encounter (principal); I10 Essential (primary) hypertension; I48.91 Unspecified atrial fibrillation; E11.9 Type 2 diabetes mellitus without complications; E03.9 Hypothyroidism, unspecified; E78.5 Hyperlipidemia, unspecified; Z79.899 Other long term (current) drug therapy; Z79.84 Long term (current) use of oral hypoglycemic drugs; W19.XXXA Unspecified fall, initial encounter
CPT/HCPCS: 70450; 72125; 80053; 85025; 85610; 93005; 93010; 96365; 96366; 96375; 99285-25; C9132; J3430

== ENCOUNTER 2020-07-24 18:20 | Inpatient (IN) | payer MEDICARE, OTHER ==
[~2020-07-24] VITALS: Ht 188 cm; Wt 75.0 kg
[2020-07-24 19:04] LABS: BASOPHILS ABSOLUTE AUTO 0.01 K/mm3 (0.00-0.23); BASOPHILS PERCENT AUTO 0 % (0-2); EOSINOPHILS ABSOLUTE AUTO 0.02 K/mm3 (0.00-0.68); EOSINOPHILS PERCENT AUTO 0 % (0-6); Hematocrit 31.6 % (37.0-53.0); Hemoglobin 10.3 g/dL (13.5-17.5); IMMATURE GRAN ABSOLUTE AUTO 0.15 K/mm3 (0.00-0.10); IMMATURE GRAN PERCENT AUTO 2 % (0-1); LYMPHOCYTES ABSOLUTE AUTO 0.71 K/mm3 (0.84-5.20); LYMPHOCYTES PERCENT AUTO 9 % (21-46); MONOCYTES ABSOLUTE AUTO 3.91 K/mm3 (0.16-1.47); MONOCYTES PERCENT AUTO 48 % (4-13); Mean Corpuscular HGB 29.6 pg (26.0-34.0); Mean Corpuscular HGB Conc 32.6 g/dL (31.5-36.5); Mean Corpuscular Volume 91 fL (80-100); Mean Platelet Volume 10.3 fL (9.1-12.4); NEUTROPHILS ABSOLUTE AUTO 3.44 K/mm3 (1.96-9.15); NEUTROPHILS PERCENT AUTO 42 % (41-73); Platelet Count 215 K/mm3 (150-400); RDW Coefficient Variation 15.5 % (11.7-14.2); RDW Standard Deviation 51.5 fL (35.1-46.3); Red Blood Cell Count 3.48 M/mm3 (4.30-5.90); White Blood Cell Count 8.24 K/mm3 (4.00-11.30)
[2020-07-24 19:32] LABS: Albumin, Blood 2.8 g/dL (3.4-5.0); Albumin/Globulin Ratio 0.7 (0.8-1.8); Bilirubin, Total 0.8 mg/dL (0.1-1.0); Bun/Creatinine Ratio 21.2 (12.0-20.0); Calcium, Blood 8.4 mg/dL (8.5-10.1); Creatinine, Blood 1.37 mg/dL (0.60-1.20); Globulin, Blood 3.8 g/dL (2.2-4.0); Potassium, Blood 4.4 mmol/L (3.5-5.5); Total Protein, Blood 6.6 g/dL (6.4-8.2)
[2020-07-24 21:29] LABS: Source, Urine Clean Catch
[2020-07-24 21:45] LABS: Bilirubin, Urine Neg (Neg); Blood, Urine 1+ (Neg); Glucose Qualitative, Urine Neg (Neg); Ketones, Urine Neg (Neg); Leukocyte Esterase, Urine Neg (Neg); Nitrite, Urine Neg (Neg); Protein, Urine 1+ (Neg); Urobilinogen, Urine 2+ (Normal)
[2020-07-24 21:47] LABS: Appearance, Urine Clear (Clear); Color, Urine Yellow (P-Yellow)
[2020-07-24 21:54] LABS: Bacteria Few /hpf; Red Blood Cells, Urine 0-2 /hpf (0-2); Squamous Epithelial Cells Few /hpf (Few); White Blood Cells, Urine 0-2 /hpf (0-5)
[2020-07-24 22:05] LABS: International Normalized Ratio 1.27; Prothrombin Time Results 13.5 Sec (9.7-11.5)
[2020-07-25 01:22] LABS: BASOPHILS ABSOLUTE AUTO 0.02 K/mm3 (0.00-0.23); BASOPHILS PERCENT AUTO 0 % (0-2); EOSINOPHILS ABSOLUTE AUTO 0.03 K/mm3 (0.00-0.68); EOSINOPHILS PERCENT AUTO 0 % (0-6); Hematocrit 29.3 % (37.0-53.0); Hemoglobin 9.5 g/dL (13.5-17.5); IMMATURE GRAN ABSOLUTE AUTO 0.12 K/mm3 (0.00-0.10); IMMATURE GRAN PERCENT AUTO 1 % (0-1); LYMPHOCYTES ABSOLUTE AUTO 1.88 K/mm3 (0.84-5.20); LYMPHOCYTES PERCENT AUTO 22 % (21-46); MONOCYTES ABSOLUTE AUTO 3.45 K/mm3 (0.16-1.47); MONOCYTES PERCENT AUTO 41 % (4-13); Mean Corpuscular HGB 29.8 pg (26.0-34.0); Mean Corpuscular HGB Conc 32.4 g/dL (31.5-36.5); Mean Corpuscular Volume 92 fL (80-100); Mean Platelet Volume 9.8 fL (9.1-12.4); NEUTROPHILS ABSOLUTE AUTO 2.96 K/mm3 (1.96-9.15); NEUTROPHILS PERCENT AUTO 35 % (41-73); Platelet Count 167 K/mm3 (150-400); RDW Coefficient Variation 15.6 % (11.7-14.2); RDW Standard Deviation 52.6 fL (35.1-46.3); Red Blood Cell Count 3.19 M/mm3 (4.30-5.90); White Blood Cell Count 8.46 K/mm3 (4.00-11.30)
[2020-07-25 01:38] LABS: International Normalized Ratio 1.34; Prothrombin Time Results 14.2 Sec (9.7-11.5)
[2020-07-25 01:49] LABS: Albumin, Blood 2.7 g/dL (3.4-5.0); Albumin/Globulin Ratio 0.8 (0.8-1.8); Bilirubin, Total 0.5 mg/dL (0.1-1.0); Bun/Creatinine Ratio 20.7 (12.0-20.0); Creatinine, Blood 1.45 mg/dL (0.60-1.20); Globulin, Blood 3.3 g/dL (2.2-4.0); Potassium, Blood 4.3 mmol/L (3.5-5.5)
--- NOTE | 2020-07-25 05:42 | NUR ---
PHYSICIAN NON INVASIVE CARDIOLOGIST SUMMARY ADMITTED TO THE FLOOR THIS SHIFT FROM THE ED WITH DX OF GASTRIC ENTERITIS. IVF OF NS INFUSING AT 75 ML/HR. HAS BEEN RESTING QUIETLY WITH FEW INTERRUPTIONS. VERY UNSTEADY ON FEET, PIVOTED TO BEDSIDE COMMODE TO VOID. CALL LIGHT IN REACH
[2020-07-25 07:13] LABS: International Normalized Ratio 1.29; Prothrombin Time Results 13.7 Sec (9.7-11.5)
--- NOTE | 2020-07-25 15:40 | NUR ---
PT RESTING, PRESENTLY EYES CLOSED, RESP EASY UNLABORED.
--- NOTE | 2020-07-25 16:29 | NUR ---
PT QUITE PLEASANT TODAY. NO C/O PAIN REPORTED. PT HAS BEEN SITTING UP IN BED TO EAT. DID REFUSED PT/OT TODAY. NO BM TODAY. NO NEW CONCERNS NOTED. BED IN LOW POSITION, CALL LITE IN REACH, CALLS BED ALARM ON FOR SAFETY
--- NOTE | 2020-07-25 23:37 | NUR ---
CAMP TENDER REPORTED "RUN OF v TACH". UPON ARRIVAL AT BEDSIDE. ASYMPTOMATIC. VOICED HE WAS FINE. WILL CONTINUE TO MONITOR. CALL LIGHT IN REACH
--- NOTE | 2020-07-26 03:53 | NUR ---
CAMP ADVISOR SUMMARY AWAKE AT INTERVALS, EACH TIME DURING ROUNDING, PT DENIED ANY DISTRESS. WAS CHANGED FOR INCONT OF URINE. ISOLATION PRECAUTIONS MAINTAINED. AWAITING BOWEL MOVEMENT FOR STOOL SAMPLE FOR GI PANEL. CALL LIGHT IN REACH
[2020-07-26 05:16] LABS: BASOPHILS ABSOLUTE AUTO 0.02 K/mm3 (0.00-0.23); BASOPHILS PERCENT AUTO 0 % (0-2); EOSINOPHILS ABSOLUTE AUTO 0.07 K/mm3 (0.00-0.68); EOSINOPHILS PERCENT AUTO 1 % (0-6); Hematocrit 30.5 % (37.0-53.0); Hemoglobin 9.9 g/dL (13.5-17.5); IMMATURE GRAN ABSOLUTE AUTO 0.15 K/mm3 (0.00-0.10); IMMATURE GRAN PERCENT AUTO 2 % (0-1); LYMPHOCYTES ABSOLUTE AUTO 1.49 K/mm3 (0.84-5.20); LYMPHOCYTES PERCENT AUTO 22 % (21-46); MONOCYTES ABSOLUTE AUTO 2.77 K/mm3 (0.16-1.47); MONOCYTES PERCENT AUTO 41 % (4-13); Mean Corpuscular HGB 29.4 pg (26.0-34.0); Mean Corpuscular HGB Conc 32.5 g/dL (31.5-36.5); Mean Corpuscular Volume 91 fL (80-100); Mean Platelet Volume 10.7 fL (9.1-12.4); NEUTROPHILS PERCENT AUTO 34 % (41-73); Platelet Count 184 K/mm3 (150-400); RDW Coefficient Variation 15.5 % (11.7-14.2); Red Blood Cell Count 3.37 M/mm3 (4.30-5.90)
[2020-07-26 05:30] LABS: International Normalized Ratio 1.17; Prothrombin Time Results 12.5 Sec (9.7-11.5)
[2020-07-26 05:44] LABS: Albumin, Blood 2.6 g/dL (3.4-5.0); Albumin/Globulin Ratio 0.7 (0.8-1.8); Bilirubin, Total 0.4 mg/dL (0.1-1.0); Bun/Creatinine Ratio 20.5 (12.0-20.0); Calcium, Blood 9.1 mg/dL (8.5-10.1); Creatinine, Blood 1.51 mg/dL (0.60-1.20); Globulin, Blood 3.7 g/dL (2.2-4.0); Potassium, Blood 4.4 mmol/L (3.5-5.5); Total Protein, Blood 6.3 g/dL (6.4-8.2)
[2020-07-26 08:07] LABS: HBSAG SCREEN Negative (Negative); HEP A AB, IGM Negative (Negative); HEP B CORE AB, IGM Negative (Negative); HEP C VIRUS AB <0.1 (0.0-0.9)
--- NOTE | 2020-07-26 11:57 | NUR ---
talked to [facility] and they sts do not need report. they already have d'c orders.
--- NOTE | 2020-07-26 15:02 | NUR ---
RIDE HERE AT ABOUT 1455. IN W/C TO MEDICAB.
[2020-07-27 08:09] LABS: COMPLEMENT C3, SERUM 90 mg/dL (82-167); COMPLEMENT C4, SERUM 14 mg/dL (12-38)
[2020-07-27 17:09] LABS: ANTI-DSDNA ANTIBODIES <1 IU/mL (0-9); RNP ANTIBODIES <0.2 AI (0.0-0.9); SJOGREN'S ANTI-SS-A <0.2 AI (0.0-0.9); SJOGREN'S ANTI-SS-B <0.2 AI (0.0-0.9); SMITH ANTIBODIES <0.2 AI (0.0-0.9)
== END 2020-07-26 14:56 | disposition home or self-care (01) | DRG 445 ==
LOC: ER 18:20 → MEDS 22:26 → ENPENDDIS 07-26 10:46 → MEDS 07-26 14:56
PROVIDERS: Emergency Medicine; Internal Medicine; ADMIT Internal Medicine
DX: K80.20 Calculus of gallbladder without cholecystitis without obstruction (principal); E87.2 Acidosis; K52.9 Noninfective gastroenteritis and colitis, unspecified; R50.9 Fever, unspecified; E86.0 Dehydration; R74.01 Elevation of levels of liver transaminase levels; E87.8 Other disorders of electrolyte and fluid balance, not elsewhere classified; I48.91 Unspecified atrial fibrillation; F03.90 Unspecified dementia, unspecified severity, without behavioral disturbance, psychotic disturbance, mood disturbance, and anxiety; E03.9 Hypothyroidism, unspecified; N32.9 Bladder disorder, unspecified; I12.9 Hypertensive chronic kidney disease with stage 1 through stage 4 chronic kidney disease, or unspecified chronic kidney disease; M81.0 Age-related osteoporosis without current pathological fracture; E11.22 Type 2 diabetes mellitus with diabetic chronic kidney disease; N18.30 Chronic kidney disease, stage 3 unspecified; E78.5 Hyperlipidemia, unspecified; J45.909 Unspecified asthma, uncomplicated; F32.9 Major depressive disorder, single episode, unspecified; Z79.84 Long term (current) use of oral hypoglycemic drugs; Z79.899 Other long term (current) drug therapy; Z79.01 Long term (current) use of anticoagulants; Z98.890 Other specified postprocedural states; Z90.89 Acquired absence of other organs
CPT/HCPCS: 36415; 71045; 74176; 80053; 80074; 81001; 83605; 83880; 84484; 85025; 85610; 86160; 86225; 86235; 93005; 93010; 96361; 96374; 96375; 97162; 97530; 99285-25; A9270; G0480; J0696; J7030; J7120

== ENCOUNTER → 2021-01-18 | Outpatient (CLI) | payer MEDICARE, OTHER | END | disposition home or self-care (01) | LOC: LAB SHORT 13:34 | DX: C44.329 Squamous cell carcinoma of skin of other parts of face (principal) | CPT/HCPCS: 88305 ==

== ENCOUNTER 2021-04-18 23:52 | Emergency (ER) | payer OTHER ==
[~2021-04-18] VITALS: Ht 185.4 cm; Wt 117.9 kg
[2021-04-19 00:46] LABS: BASOPHILS ABSOLUTE AUTO 0.03 K/mm3 (0.00-0.23); BASOPHILS PERCENT AUTO 0 % (0-2); EOSINOPHILS ABSOLUTE AUTO 0.03 K/mm3 (0.00-0.68); EOSINOPHILS PERCENT AUTO 0 % (0-6); Hemoglobin 10.4 g/dL (13.5-17.5); IMMATURE GRAN ABSOLUTE AUTO 0.18 K/mm3 (0.00-0.10); IMMATURE GRAN PERCENT AUTO 2 % (0-1); LYMPHOCYTES ABSOLUTE AUTO 2.92 K/mm3 (0.84-5.20); LYMPHOCYTES PERCENT AUTO 30 % (21-46); MONOCYTES ABSOLUTE AUTO 3.53 K/mm3 (0.16-1.47); MONOCYTES PERCENT AUTO 36 % (4-13); Mean Corpuscular HGB 26.7 pg (26.0-34.0); Mean Corpuscular HGB Conc 30.6 g/dL (31.5-36.5); Mean Corpuscular Volume 87 fL (80-100); Mean Platelet Volume 10.6 fL (9.1-12.4); NEUTROPHILS ABSOLUTE AUTO 3.17 K/mm3 (1.96-9.15); NEUTROPHILS PERCENT AUTO 32 % (41-73); Platelet Count 156 K/mm3 (150-400); RDW Coefficient Variation 16.1 % (11.7-14.2); RDW Standard Deviation 51.8 fL (35.1-46.3); Red Blood Cell Count 3.89 M/mm3 (4.30-5.90); White Blood Cell Count 9.86 K/mm3 (4.00-11.30)
[2021-04-19 00:58] LABS: Albumin, Blood 3.6 g/dL (3.4-5.0); Albumin/Globulin Ratio 0.9 (0.8-1.8); Bilirubin, Total 0.3 mg/dL (0.1-1.0); Bun/Creatinine Ratio 18.9 (12.0-20.0); Calcium, Blood 9.1 mg/dL (8.5-10.1); Creatinine, Blood 1.96 mg/dL (0.60-1.20); Globulin, Blood 4.1 g/dL (2.2-4.0); Potassium, Blood 4.3 mmol/L (3.5-5.5); Total Protein, Blood 7.7 g/dL (6.4-8.2)
== END 2021-04-19 02:03 | disposition home or self-care (01) ==
LOC: ER 23:52
PROVIDERS: Emergency Medicine
DX: R55 Syncope and collapse (principal); I10 Essential (primary) hypertension; E11.9 Type 2 diabetes mellitus without complications; E03.9 Hypothyroidism, unspecified; E78.5 Hyperlipidemia, unspecified; Z79.899 Other long term (current) drug therapy
CPT/HCPCS: 36415; 80053; 85025; 93005; 93010; 99284-25

== ENCOUNTER 2021-05-09 14:56 | Inpatient (IN) | payer OTHER ==
[~2021-05-09] VITALS: Ht 188 cm; Wt 90.7 kg
[2021-05-09 16:24] LABS: Hematocrit 30.4 % (37.0-53.0); Hemoglobin 9.7 g/dL (13.5-17.5); Mean Corpuscular HGB 27.6 pg (26.0-34.0); Mean Corpuscular HGB Conc 31.9 g/dL (31.5-36.5); Mean Corpuscular Volume 86 fL (80-100); Mean Platelet Volume 11.2 fL (9.1-12.4); Platelet Count 255 K/mm3 (150-400); RDW Coefficient Variation 18.3 % (11.7-14.2); Red Blood Cell Count 3.52 M/mm3 (4.30-5.90); White Blood Cell Count 24.34 K/mm3 (4.00-11.30)
[2021-05-09 16:44] LABS: Albumin, Blood 3.4 g/dL (3.4-5.0); Albumin/Globulin Ratio 0.9 (0.8-1.8); Bilirubin, Total 0.6 mg/dL (0.1-1.0); Bun/Creatinine Ratio 18.3 (12.0-20.0); Creatinine, Blood 1.91 mg/dL (0.60-1.20); Globulin, Blood 3.7 g/dL (2.2-4.0); Potassium, Blood 4.4 mmol/L (3.5-5.5); Total Protein, Blood 7.1 g/dL (6.4-8.2)
[2021-05-09 17:18] LABS: BASOPHILS PERCENT MAN 0 % (0-2); EOSINOPHILS PERCENT MAN 0 % (0-6); LYMPHOCYTES ABSOLUTE MAN 2.43 K/mm3 (0.84-5.20); LYMPHOCYTES PERCENT MAN 10 % (21-46); MONOCYTES ABSOLUTE MAN 8.03 K/mm3 (0.16-1.47); MONOCYTES PERCENT MAN 33 % (4-13); NEUTROPHILS ABSOLUTE MAN 11.92 K/mm3 (1.96-9.15); SEG NEUTROPHILS PERCENT MAN 49 % (41-73); TOTAL CELLS COUNTED 100
[2021-05-09 17:19] LABS: OTHER CELL PERCENT MAN 8 % (0-0)
[2021-05-09 20:51] LABS: Creatine Kinase MB 7.5 ng/mL (0.0-3.6); Creatine Kinase MB Index 1.9 (0.0-4.0)
[2021-05-09] MEDS ORDERED: FERSU300 PO (23:20)
[2021-05-09 23:22] LABS: Anti-Xa UFH, PHA Monitoring <0.10 IU/mL; D-Dimer, Quantitative 1.17 mg/L FEU (0.00-0.52); International Normalized Ratio 1.15
[2021-05-09] MEDS ORDERED: METO25ER PO (23:23)
[2021-05-09 23:31] LABS: Influenza A, PCR NEGATIVE (NEGATIVE); Influenza B, PCR NEGATIVE (NEGATIVE); Resp Syncytial Virus, PCR NEGATIVE (NEGATIVE); SARS-Cov-2 (COVID-19) PCR, MMC NEGATIVE (NEGATIVE)
[2021-05-09] MEDS ORDERED: OMEP20ER PO (23:31)
[2021-05-09] MEDS ORDERED: BISA10S PR (23:49)
[2021-05-09] MEDS ORDERED: LOPE2C PO (23:50)
[2021-05-09] MEDS ORDERED: MIRALAX17 GM PO (23:51)
[2021-05-09] MEDS ORDERED: NITR.4SL SL (23:51)
[2021-05-09] MEDS ORDERED: ONDA4 PO (23:51)
[2021-05-09] MEDS ORDERED: SENN187 PO (23:52)
--- NOTE | 2021-05-10 00:12 | NUR ---
PT UPDATE PT BROUGHT TO UNIT FROM ED. HR TACHY 110'S-130'S. BP STABLE. MAP ABOVE 65. OXYGEN SATURATION MAINTAINED ABOVE 98% ON 1 L. PT ON 1 L O2 VIA NC FOR COMFORT, RECOMMENDED FROM ED PHYSICIAN. HEPARIN GTT, SEE EMAR. PHYSICIAN NOTIFIED OF INCREASE IN TROPONIN, ORDERS FOR CARDIOLOGY CONSULT IN AM. ICU TALENT ACQUISITION MANAGER, PCU TALENT ACQUISITION MANAGER ASSESSED TELE STRIP, DECIDED PT IN AFIB W/ABERRANCY. BED ALARM IN PLACE. PHYSICIAN ALLOWED PT TO EAT UNTIL 0000. PT'S SON DRE UPDATED PER PT REQUEST. CALL LIGHT IN REACH. WILL CONT TO MONITOR.
--- NOTE | 2021-05-10 05:40 | NUR ---
SHIFT SUMMARY PT ALERT AND ORIENTED X 4. DEPENDS IN PLACE FOR INCONTINENCE. HR STABLE AT THIS TIME AFIB IN 80'S. BP STABLE. MAP ABOVE 65. OXYGEN SATURATION MAINTAINED ABOVE 92% ON RA. PT TO WEAR OXYGEN AT TIMES FOR COMFORT AT 1-2 L, PER DR. FINLEY. NO CP OR PRESSURE. HEPARIN GTT, SEE EMAR. PT ABLE TO TURN SELF IN BED. COCCYX RED, BLANCHABLE. PT ENCOURAGED TO TURN IN BED. PT 2 ASSIST W/WALKER. HX OF FALLS. BED ALARM IN PLACE. PHYSICIAN NOTIFIED OF ELEVATED D DIMER. NO NEW ORDERS AT THIS TIME. PT'S SON UPDATED DURING SHIFT PER PT REQUEST, SEE EHR. CARDIOLOGY CONSULT CALLED AND ADDED INTO ADM. CALL LIGHT WITHIN REACH. WILL CONT TO MONITOR UNTIL REPORT GIVEN TO TRUONG BOWDEN.
[2021-05-10 06:07] LABS: BASOPHILS ABSOLUTE AUTO 0.03 K/mm3 (0.00-0.23); BASOPHILS PERCENT AUTO 0 % (0-2); EOSINOPHILS ABSOLUTE AUTO 0.03 K/mm3 (0.00-0.68); EOSINOPHILS PERCENT AUTO 0 % (0-6); Hematocrit 30.4 % (37.0-53.0); Hemoglobin 9.4 g/dL (13.5-17.5); IMMATURE GRAN ABSOLUTE AUTO 0.26 K/mm3 (0.00-0.10); IMMATURE GRAN PERCENT AUTO 2 % (0-1); LYMPHOCYTES ABSOLUTE AUTO 1.84 K/mm3 (0.84-5.20); LYMPHOCYTES PERCENT AUTO 11 % (21-46); MONOCYTES ABSOLUTE AUTO 7.73 K/mm3 (0.16-1.47); MONOCYTES PERCENT AUTO 46 % (4-13); Mean Corpuscular HGB 26.9 pg (26.0-34.0); Mean Corpuscular HGB Conc 30.9 g/dL (31.5-36.5); Mean Corpuscular Volume 87 fL (80-100); Mean Platelet Volume 10.7 fL (9.1-12.4); NEUTROPHILS ABSOLUTE AUTO 6.87 K/mm3 (1.96-9.15); NEUTROPHILS PERCENT AUTO 41 % (41-73); Platelet Count 194 K/mm3 (150-400); RDW Coefficient Variation 18.2 % (11.7-14.2); RDW Standard Deviation 55.6 fL (35.1-46.3); White Blood Cell Count 16.76 K/mm3 (4.00-11.30)
[2021-05-10 06:34] LABS: Bun/Creatinine Ratio 18.1 (12.0-20.0); Calcium, Blood 8.6 mg/dL (8.5-10.1); Creatinine, Blood 1.99 mg/dL (0.60-1.20); Potassium, Blood 4.1 mmol/L (3.5-5.5)
--- NOTE | 2021-05-10 09:43 | NUR ---
AM NOTE: PT RESTING IN BED UPON DOING ASSESSMENT, ALERT AND ORIENTED X4, ECHO DNE IN THE ROOM THIS AM DR BAEZA AT BEDSIDE CONSENTED THE PT FOR ANGIO TODAY HOPEFULLY AT 11A, HEPARIN STOPPED PER ORDER. METOPROLOL HELD THIS AM PER DR BAEZA PT WITH SOFT BP'S 90-100'S, SATS ABOVE 95% ON RA WHEN AWAKE, NEEDS ATLEAST 1L WHEN SLEEPING DESATS TO 88%. PT DENIES ANY CHEST PAIN OR PRESSURE AT THIS TIME. ATTENDS IN PLACE, USES URINAL FOR VOIDING. REMAINS NPO AT THIS TIME. CALL LIGHTS IN REACH WILL CONTINUE TO MONITOR
--- NOTE | 2021-05-10 12:31 | NUR ---
Echocardiogram using 0.60ml of Definity contrast performed.
--- NOTE | 2021-05-10 13:46 | NUR ---
PT ARRIVED BACK IN THE ROOM FROM SOLDER CREAM MAKER, SOON PT ROLLED IN PT STARTED C/O SHORTNESS OF BREATH SATS 94% ON RA, 2L OF O2 APPLIED VIA NASAL CANNULA FOR COMFORT, THEN PT STARTED C/O CHEST PAIN 10 GRADUALLY WORSENED SHARP PAIN MIDCHEST 09/14, EKG DONE, KOMAL FROM SOLDER CREAM MAKER REMAINED AT THE BEDSIDE PT SHOWS SOME MILD ST ELEVATION ON BBB HRR INCREASES TO 130'S DR WRIGHT ORDERED NITRO, MORPHINE AND CARDIZEM IV 10 MG. NITRO AND MORPHINE X1 DOSE EACH GIVEN, PAIN NOW SUBSIDED WENT DOWN TO 2/10. BP SYSTOLIC SOFT 80-90'S, MAP KEPT ABOVE 60 PT NOW RESTING IN BED, HEPARIN RESUMED AT 15U/KG/HR PER DR WRIGHT VERIFIED WITH OB GYN PHYSICIAN ASSISTANT, EVEN TR BAND IS NOT FULLY RECOVERED YET. WILL CONTINUE TO MONITOR PT
[2021-05-10 16:44] LABS: Source, Urine Foley catheter
[2021-05-10 16:47] LABS: Appearance, Urine Clear (Clear); Bilirubin, Urine Neg (Neg); Blood, Urine 1+ (Neg); Color, Urine Yellow (P-Yellow); Glucose Qualitative, Urine Neg (Neg); Ketones, Urine 1+ (Neg); Leukocyte Esterase, Urine Neg (Neg); Nitrite, Urine Neg (Neg); Protein, Urine 1+ (Neg); Urobilinogen, Urine NORM (Normal)
[2021-05-10 17:25] LABS: Amorphous Light (0-Heavy); Bacteria Few /hpf; Red Blood Cells, Urine Not Seen /hpf (0-2); Squamous Epithelial Cells Rare /hpf (Few); White Blood Cells, Urine Not Seen /hpf (0-5)
--- NOTE | 2021-05-10 18:33 | NUR ---
PT SUMMARY: SEE PREVIOUS NOTES. PT HAD ANOTHER CHEST PAIN EPISODE 06/14 AT AROUND 1600 WHEN EKG WAS DONE RHYTHM WENT BACK TO ABBERANCY/BBB/AFIB RATE NOW RANGING 115-140'S PT FEELING REALLY SHORT OF BREATH ON 2L OF O2 PT SATTING ABOVE 95%, CRACKLES NOTED ON BOTH LUNGS BP REMAINED SOFT 90-110'S. MORPHINE 1MG IV WAS GIVEN AGAIN PAIN WENT DOWN TO 0, BUT SOB REMAINED THE SAME PT STATED IT COMES AND GOES, BUMEX 2MG IV GIVEN TAYLOR PLACED PER DR BAEZA FOR STRICT I&OS, HEPARIN GTT STILL RUNNING AT 15U/KG/HR/ TR BAND SITE REMAINED INFLATED EVERYTIME THIS RN STARTS TO DEFLATE ATLEAST 4 CC OF AIR SITE THEN STARTED TO BLEED OUT. DR BAEZA SAW PT AT THE BEDSIDE AND REASSED, WILL KEEP MONITORING PT, ORDERED NITRO PASTE AND METOLAZONE. PT NOW IN BED RESTING CURRENTLY CHEST PAIN FREE STILL HAS VISIBLE SOB, REFUSED TO EAT DINNER DUE TO SOB. CALL LIGHTS IN REACH WILL REPORT TO ONCOMING SHIFT
[2021-05-10 22:10] LABS: Magnesium, Blood 1.7 mg/dL (1.6-2.4); Potassium, Blood 4.8 mmol/L (3.5-5.5)
--- NOTE | 2021-05-10 23:09 | NUR ---
UPDATE PHYSICIAN NOTIFIED OF PT'S DYSPNEA, HIGH HR 120-140 . HOSPITALIST ORDERS FOR PT TO HAVE BUMEX 1 MG X 1 AND BEGIN CARDIZEM GTT. TELEGRAPH REPEATER MECHANIC CALLED THIS RN AND ORDERED TO D/C CARDIZEM GTT. ORDERS FROM DR. BAEZA, SEE EMAR. ORDERS FOR STAT LABS, SEE EHR. TELEGRAPH REPEATER MECHANIC AT BEDSIDE WITH PT. TELEGRAPH REPEATER MECHANIC UPDATED PT'S SON ON STATUS. ORDERS FOR .5 MG OF DIGOXIN X 1. WILL GIVE MEDICATION ONCE AVAILABLE FROM PHARMACY. ORDERS FOR PT TO GO ONTO BIPAP FROM CARDIOLOY.OXYGEN SATURATION MAINTAINED ABOVE 92%. WILL CONT TO MONITOR. CALL LIGHT WITHIN REACH.
[2021-05-11 03:16] LABS: BASOPHILS ABSOLUTE AUTO 0.02 K/mm3 (0.00-0.23); BASOPHILS PERCENT AUTO 0 % (0-2); EOSINOPHILS ABSOLUTE AUTO 0.02 K/mm3 (0.00-0.68); EOSINOPHILS PERCENT AUTO 0 % (0-6); Hematocrit 29.5 % (37.0-53.0); Hemoglobin 9.3 g/dL (13.5-17.5); IMMATURE GRAN ABSOLUTE AUTO 0.32 K/mm3 (0.00-0.10); IMMATURE GRAN PERCENT AUTO 2 % (0-1); LYMPHOCYTES ABSOLUTE AUTO 1.16 K/mm3 (0.84-5.20); LYMPHOCYTES PERCENT AUTO 8 % (21-46); MONOCYTES ABSOLUTE AUTO 4.52 K/mm3 (0.16-1.47); MONOCYTES PERCENT AUTO 31 % (4-13); Mean Corpuscular HGB 26.7 pg (26.0-34.0); Mean Corpuscular HGB Conc 31.5 g/dL (31.5-36.5); Mean Corpuscular Volume 85 fL (80-100); Mean Platelet Volume 11.2 fL (9.1-12.4); NEUTROPHILS ABSOLUTE AUTO 8.75 K/mm3 (1.96-9.15); NEUTROPHILS PERCENT AUTO 59 % (41-73); Platelet Count 224 K/mm3 (150-400); RDW Coefficient Variation 18.3 % (11.7-14.2); RDW Standard Deviation 54.2 fL (35.1-46.3); Red Blood Cell Count 3.48 M/mm3 (4.30-5.90); White Blood Cell Count 14.79 K/mm3 (4.00-11.30)
[2021-05-11 03:36] LABS: Albumin, Blood 3.2 g/dL (3.4-5.0); Albumin/Globulin Ratio 0.8 (0.8-1.8); Bilirubin, Total 0.9 mg/dL (0.1-1.0); Bun/Creatinine Ratio 17.6 (12.0-20.0); Calcium, Blood 9.1 mg/dL (8.5-10.1); Creatinine, Blood 2.1 mg/dL (0.60-1.20); Globulin, Blood 4.2 g/dL (2.2-4.0); Magnesium, Blood 1.8 mg/dL (1.6-2.4); Potassium, Blood 4.5 mmol/L (3.5-5.5); Total Protein, Blood 7.4 g/dL (6.4-8.2)
[2021-05-11 03:57] LABS: TOTAL CELLS COUNTED 2
--- NOTE | 2021-05-11 06:48 | NUR ---
SHIFT SUMMARY PT ALERT AND ORIENTED X 4. HR TACHY AT TIMES, PHYSICIAN AWARE. HR CURRENLTY AFIB IN 70'S. NO CP OR PRESSURE REPORTED. CARDIOLOGY AT BEDSIDE DURING BEGINNING OF SHIFT, SEE NOTES AND ORDERS. PT WORE BIPAP MOST OF SHIFT. REPORTED TO FEEL ANXIOUS THIS AM AND IS NOT ON 3-4 L OF OXYGEN VIA NC AND RESTING. PT DOES NOT APPEAR IN DISTRESS AT THIS TIME. TAYLOR PATENT AND TO GRAVITY DRAIN. HEPARIN GTT. SEE EMAR. R RADIAL SITE DIFFICULT TO RECOVER. TR BAND REMOVED AT 0400. SITE CLEANED AND TEGDERM PLACED. ARM BOARD IN PLACE. SITE WNL AT THIS TIME.PULSE STRONG. EKG DONE AT 0500. IN CHART. NITRO PASTE IN PLACE ON CHEST. BED ALARM IN PLACE. WILL CONT TO MONITOR UNTIL REPORT GIVEN TO DAYSTAMY RN.
--- NOTE | 2021-05-11 07:30 | NUR ---
ASSUMED CARE: PT CURRENTLY RESTING QUIETLY, ON 4L O2 VIA NC. DR BAEZA CAME TO SEE PT AND STATED HE WOULD CONTINUE TO OBSERVE AND ASSIST NEEDED. AFIB ON TELE WITH RATE CONTROL. NO ACUTE NEEDS AT THIS TIME.
--- NOTE | 2021-05-11 09:00 | NUR ---
NEPHROLOGY CONSULT ORDERED. CALL TO DR ABBOTT TO NOTIFY HIM OF THIS. SEE NEW ORDERS
--- NOTE | 2021-05-11 10:42 | NUR ---
DR ABBOTT PLACED FLUID ORDERS ON PT. CALLED HIM TO VERIFY THAT HE WAS AWARE THAT CARDIOLOGY WAS CONCERNED ABOUT CHF WITH THIS PT. STATED "WE HAVE NO CHOICE." WILL CONTINUE WITH ORDER DIRECTED
--- NOTE | 2021-05-11 10:46 | NUR ---
DR ABBOTT CALLED BACK TO CLARIFY THAT MEDICALLY, WE HAVE NO CHOICE BUT TO RUN IV FLUIDS IN ORDER TO GIVE PT'S KIDNEYS A CHANCE TO BE ABLE TO TOLERATE SECOND ANGIOGRAM
--- NOTE | 2021-05-11 17:45 | NUR ---
SHIFT SUMMARY: PT HAS BEEN ON BIPAP MAJORITY OF DAY FOR COMFORT DUE TO FEELING SOB WHEN TAKING BREAKS WITH NC. VSS, IVF PER DR ABBOTT AND HEPARIN ORDERED PER CARDIOLOGY. RIGHT RADIAL SITE UNCHANGED ALL SHIFT. PLAN IS FOR POSSIBLE ANGIO TOMORROW IF KIDNEY NUMBERS IMPROVE. NO ACUTE NEEDS AT THIS TIME.
--- NOTE | 2021-05-11 20:39 | NUR ---
CARE ASSUMPTION: RECEIVED REPORT FROM DENNISE SIGALA. PATIENT IN BED WATCHING TV. RADIAL SUPPORT IN PLACE, SITE WNL WITH DRIED BLOOD UNDER DRESSING. PATIENT ON 4L NC AND DENIES SOB AND CHEST PAIN. DENIES NEEDS AT THIS TIME.
[2021-05-12 05:11] LABS: BASOPHILS ABSOLUTE AUTO 0.02 K/mm3 (0.00-0.23); BASOPHILS PERCENT AUTO 0 % (0-2); EOSINOPHILS ABSOLUTE AUTO 0.03 K/mm3 (0.00-0.68); EOSINOPHILS PERCENT AUTO 0 % (0-6); Hematocrit 28.7 % (37.0-53.0); Hemoglobin 9.2 g/dL (13.5-17.5); Mean Corpuscular HGB 27.1 pg (26.0-34.0); Mean Corpuscular HGB Conc 32.1 g/dL (31.5-36.5); Mean Corpuscular Volume 85 fL (80-100); Platelet Count 217 K/mm3 (150-400); RDW Standard Deviation 55.2 fL (35.1-46.3); Red Blood Cell Count 3.39 M/mm3 (4.30-5.90); White Blood Cell Count 13.67 K/mm3 (4.00-11.30)
--- NOTE | 2021-05-12 05:13 | NUR ---
SHIFT SUMMARY: PATIENT A&O X4, RADIAL SITE WNL, DENIED CHEST PAIN AND SOB. PATIENT WORE BIPAP FOR ~2 HOURS THEN REQUESTED RETURN TO [place]. VSS T/O SHIFT ON 2L NC. PATIENT SLEPT DEEPLY AND WAS DIFFICULT TO AROUSE. PLEASANT AND COOPERATIVE WILL CARE, USES CALL LIGHT APPROPRIATELY. BED IN LOW POSITION WITH ALARM ON. WILL CONTINUE TO MONITOR AND REPORT TO ONCOMING RN.
[2021-05-12 05:19] LABS: IMMATURE GRAN ABSOLUTE AUTO 0.42 K/mm3 (0.00-0.10); IMMATURE GRAN PERCENT AUTO 3 % (0-1); LYMPHOCYTES ABSOLUTE AUTO 1.44 K/mm3 (0.84-5.20); LYMPHOCYTES PERCENT AUTO 11 % (21-46); MONOCYTES ABSOLUTE AUTO 5.33 K/mm3 (0.16-1.47); MONOCYTES PERCENT AUTO 39 % (4-13); NEUTROPHILS ABSOLUTE AUTO 6.43 K/mm3 (1.96-9.15); NEUTROPHILS PERCENT AUTO 47 % (41-73)
[2021-05-12 05:44] LABS: Albumin, Blood 2.9 g/dL (3.4-5.0); Albumin/Globulin Ratio 0.7 (0.8-1.8); Bilirubin, Total 0.7 mg/dL (0.1-1.0); Bun/Creatinine Ratio 18.6 (12.0-20.0); Calcium, Blood 8.7 mg/dL (8.5-10.1); Creatinine, Blood 2.1 mg/dL (0.60-1.20); Globulin, Blood 3.9 g/dL (2.2-4.0); Magnesium, Blood 1.7 mg/dL (1.6-2.4); Phosphorus, Blood 3.9 mg/dL (2.5-4.9); Potassium, Blood 3.7 mmol/L (3.5-5.5); Total Protein, Blood 6.8 g/dL (6.4-8.2)
--- NOTE | 2021-05-12 06:23 | NUR ---
UPDATE: PATIENT SOMNELENT AND SLOW TO RESPOND. PLACED BIPAP. WILL CALL HOSPITALIST FOR V[facility].
[2021-05-12 06:28] LABS: BAND PERCENT MAN 1 % (0-8); BASOPHILS PERCENT MAN 0 % (0-2); EOSINOPHILS PERCENT MAN 0 % (0-6); LYMPHOCYTES ABSOLUTE MAN 0.95 K/mm3 (0.84-5.20); LYMPHOCYTES PERCENT MAN 7 % (21-46); MONOCYTES ABSOLUTE MAN 3.96 K/mm3 (0.16-1.47); MONOCYTES PERCENT MAN 29 % (4-13); MYELOCYTE ABSOLUTE MAN 0.41 K/mm3 (0.00-0.00); MYELOCYTE PERCENT MAN 3 % (0-0); NEUTROPHILS ABSOLUTE MAN 8.33 K/mm3 (1.96-9.15); SEG NEUTROPHILS PERCENT MAN 60 % (41-73); TOTAL CELLS COUNTED 100
[2021-05-12 07:52] LABS: Base Excess Venous -0.2 mmol/L; PCO2 Venous 35.3 mmHg (38-42); PO2 Venous 34.9 mmHg (38-42); pH Blood Venous 7.44 (7.34-7.37)
--- NOTE | 2021-05-12 10:05 | NUR ---
UPDATE PT TRANSPORTED TO [facility] BY BED.
--- NOTE | 2021-05-12 12:10 | NUR ---
UPDATE PT RETURNED FROM HEART CENTER AT 1155. TR BAND IN PLACE OVER R. RADIAL SITE, C/D/I NO HEMATOMA NOTED, NO TENDERNESS, DISTAL PULSES INTACT AND EQUAL. TR BAND STATED 10CC OF AIR. PT IS TACHYPNEIC, RR 24, SPO2 > 97% ON RA. LUNG SOUNDS CLEAR, NO ACCESSORY MUSCLE USE. PT DENIES C/O PAIN, STATES DISCOMFORT IN NECK R/T STATED PREVIOUS SURGERY.
--- NOTE | 2021-05-12 17:46 | NUR ---
SHIFT SUMMARY PT HAS BEEN RESTING IN BED. RIGHT RADIAL SITE IS CLEAN, DRY, INTACT, NO HEMATOMA, SWELLING, OR TENDERNESS, DISTAL PULSES ARE INTACT AND EQUAL. PT HAS DENIED CHEST PAIN OR PRESSURE AND HAS REPOSITIONED SELF FREQUENTLY FOR COMFORT. SBP HAS BEEN VARIABLE, 98-144, SPO2 HAS REMAINED >95% ON ROOM AIR. PT HAS HAD PERIODS OF SHORTNESS OF BREATH CHARACTERIZED WITH TACHYPNEA, LUNG SOUNDS ARE CLEAR DURING THESE EPISODES AND SPO2 REMAINS CONSISTENTLY >95%. NO INTERVENTIONS ATTEMPTED HELPED THESE EPISODES AND THEY WOULD RESOLVE SPONTANEOUSLY. PT DENIES ANY FEELINGS OF ANXIETY. PT HAS CALLED APPROPRIATELY FOR ASSISTANCE, ANSWERS ORIENTATION QUESTIONS APPROPRIATELY AND IS COOPERATIVE WITH CARES.
--- NOTE | 2021-05-12 23:05 | NUR ---
CARE ASSUMPTION: RECEIVED REPORT FROM MAINOR OROZCO RN. PATIENT IN BED WITH IRON INFUSING AND NS ON STANDBY. PATIENT DENIED CHEST PAIN OR RADIAL SITE PAIN. BREATHING WAS SHALLOW AND TACHY - O2 SATS >95% PM RA, STATED HE FELT A LITTLE ANXIOUS AND READY TO GO HOME. REQUESTED SLEEP AID FOR BEDTIME. PATIENT MILDLY TACHYCARDIC, VSS ON RA.
[2021-05-13 05:08] LABS: Hemoglobin 9.6 g/dL (13.5-17.5); Mean Corpuscular HGB 26.9 pg (26.0-34.0); Mean Corpuscular Volume 84 fL (80-100); Mean Platelet Volume 11.1 fL (9.1-12.4); Platelet Count 225 K/mm3 (150-400); RDW Standard Deviation 53.5 fL (35.1-46.3); Red Blood Cell Count 3.57 M/mm3 (4.30-5.90); White Blood Cell Count 13.53 K/mm3 (4.00-11.30)
[2021-05-13 06:14] LABS: BAND PERCENT MAN 1 % (0-8); BASOPHILS PERCENT MAN 0 % (0-2); EOSINOPHILS PERCENT MAN 0 % (0-6); LYMPHOCYTES ABSOLUTE MAN 2.84 K/mm3 (0.84-5.20); LYMPHOCYTES PERCENT MAN 21 % (21-46); MONOCYTES ABSOLUTE MAN 3.78 K/mm3 (0.16-1.47); MONOCYTES PERCENT MAN 28 % (4-13); MYELOCYTE ABSOLUTE MAN 0.27 K/mm3 (0.00-0.00); MYELOCYTE PERCENT MAN 2 % (0-0); NEUTROPHILS ABSOLUTE MAN 6.62 K/mm3 (1.96-9.15); SEG NEUTROPHILS PERCENT MAN 48 % (41-73); TOTAL CELLS COUNTED 100
[2021-05-13 07:21] LABS: Magnesium, Blood 1.7 mg/dL (1.6-2.4)
[2021-05-13 07:22] LABS: Albumin, Blood 3.2 g/dL (3.4-5.0); Albumin/Globulin Ratio 0.7 (0.8-1.8); Bilirubin, Total 0.5 mg/dL (0.1-1.0); Calcium, Blood 9.2 mg/dL (8.5-10.1); Creatinine, Blood 2.3 mg/dL (0.60-1.20); Globulin, Blood 4.4 g/dL (2.2-4.0); Phosphorus, Blood 4.1 mg/dL (2.5-4.9); Potassium, Blood 3.6 mmol/L (3.5-5.5); Total Protein, Blood 7.6 g/dL (6.4-8.2)
--- NOTE | 2021-05-13 14:25 | NUR ---
CARE ASSUMED BY MYCHAL BOWDEN AT 1400. PATIENT ALERT AND ORIENTED. IN NO DISTRESS. ON ROOM AIR, LUNGS SONDING CLEAR. SOB WITH TALKING. TELE SHOWING AFIB WITH HR 90'S AT THIS TIME. DENIES CHEST PAIN/PRESSURE. VITAL SIGNS STABLE. RIGHT RADIAL SITE WNL. DENIES ABDOMINAL PAIN/NAUSEA. SMALL APPEATITE. DRINKING FLUIDS AT THIS TIME. TAYLOR CATH RECENTLY REMOVED. MONITORING OUTPUT. ATTENDS IN PLACE. Q2 TURNING AND NEEDED. FAMILY AT BEDSIDE. LABS DRAWN FROM POWER GLIDE. ALL IV ACCESS SALINE LOCKED AT THIS TIME. WILL CONTINUE TO MONITOR. CALL LIGHT IN REACH.
[2021-05-13 15:00] LABS: Bun/Creatinine Ratio 20.6 (12.0-20.0); Calcium, Blood 9.3 mg/dL (8.5-10.1); Creatinine, Blood 2.28 mg/dL (0.60-1.20); Potassium, Blood 3.7 mmol/L (3.5-5.5)
--- NOTE | 2021-05-13 17:32 | NUR ---
SHIFT SUMMARY: NO ACUTE CHANGES, SEE PREVIOUS NOTE. NO CHANGES IN NEURO OR TELE. REMAINS ON ROOM AIR. SOB WITH TALKING AND MOVEMENT IN BED. REMAINS BEDREST AT THIS TIME WITH Q2 TURNING AND NEEDED. DENIES ABDOMINAL PAIN/NAUSEA. TAYLOR CATH REMOVED EARLIER TODAY. ATTENDS IN PLACE. NOT EATING MUCH. VITAL SIGNS STABLE. RIGHT RADIAL SITE WNL, WITH ARM BOARD IN PLACE. SALINE LOCKED. DENIES NEEDS AT THIS TIME. WILL CONTINUE TO MONITOR AND REPORT OFF TO ONCOMING RN.
--- NOTE | 2021-05-13 22:03 | NUR ---
ASSUMED CARE OF PATIENT AT APPROXIMATELY 1910 FROM CHRISTOPHER Bocanegra RN. PATIENT ALERT AND ORIENTED X4; FORGETFUL AT TIMES. PATIENT REPORTS W/C BOUND AT HOME; Q2H TURNS. PATIENT DENIES PAIN, NUMBNESS, TINGLING, DIZZINESS, AND NAUSEA. RIGHT WRIST HAS ARMBOARD FROM PREVIOUS ANGIOGRAM'S; SOME SMALL BRUISING NOTED; NO ACTIVE BLEEDING OR HEMATOMA. PG AND PIV S/L. AFIB ON TELE; OXYGEN SATURATION ABOVE 90% ON ROOM AIR. MEDICAL TELE STATUS; [facility] [place] [employer] MACHINE OPERATOR JOAQUÍN ASSISTING IN CARE.
[2021-05-14 05:47] LABS: Hematocrit 32.6 % (37.0-53.0); Hemoglobin 10.3 g/dL (13.5-17.5); Mean Corpuscular HGB 27.2 pg (26.0-34.0); Mean Corpuscular HGB Conc 31.6 g/dL (31.5-36.5); Mean Corpuscular Volume 86 fL (80-100); Platelet Count 209 K/mm3 (150-400); RDW Coefficient Variation 18.7 % (11.7-14.2); Red Blood Cell Count 3.78 M/mm3 (4.30-5.90); White Blood Cell Count 14.05 K/mm3 (4.00-11.30)
[2021-05-14 06:18] LABS: Albumin, Blood 3.2 g/dL (3.4-5.0); Albumin/Globulin Ratio 0.7 (0.8-1.8); Bilirubin, Total 0.6 mg/dL (0.1-1.0); Bun/Creatinine Ratio 21.3 (12.0-20.0); Calcium, Blood 9.1 mg/dL (8.5-10.1); Creatinine, Blood 2.21 mg/dL (0.60-1.20); Globulin, Blood 4.6 g/dL (2.2-4.0); Magnesium, Blood 1.9 mg/dL (1.6-2.4); Phosphorus, Blood 4.2 mg/dL (2.5-4.9); Potassium, Blood 3.6 mmol/L (3.5-5.5); Total Protein, Blood 7.8 g/dL (6.4-8.2)
--- NOTE | 2021-05-14 06:27 | NUR ---
PATIENT SLEPT ABOUT EIGHT HOURS LAST NIGHT; OXYGEN SATURATION DROPPED DOWN TO 70'S FOR SECONDS AND QUICKLY RECOVERED; PATIENT AGREED TO WEAR CPAP TWICE FOR LESS THAN AN HOUR AND RIPPED IT OFF; REPORTS HE DOESNT LIKE THE MASK; IT IS SUFFOCATING HIM; 2LPM NC APPLIED THAT ALREADY BEDSIDE; NO FURTHER DROPS IN OXYGEN SATURATION. PATIENT INCONTINENT OF URINE; ATTENDS IN PLACE.
[2021-05-14 07:08] LABS: BAND PERCENT MAN 1 % (0-8); BASOPHILS PERCENT MAN 0 % (0-2); EOSINOPHILS PERCENT MAN 0 % (0-6); LYMPHOCYTES ABSOLUTE MAN 2.52 K/mm3 (0.84-5.20); LYMPHOCYTES PERCENT MAN 18 % (21-46); METAMYELOCYTE ABSOLUTE MAN 0.14 K/mm3 (0.00-0.00); METAMYELOCYTE PERCENT MAN 1 % (0-0); MONOCYTES ABSOLUTE MAN 3.23 K/mm3 (0.16-1.47); MONOCYTES PERCENT MAN 23 % (4-13); MYELOCYTE ABSOLUTE MAN 0.42 K/mm3 (0.00-0.00); MYELOCYTE PERCENT MAN 3 % (0-0); NEUTROPHILS ABSOLUTE MAN 7.72 K/mm3 (1.96-9.15); SEG NEUTROPHILS PERCENT MAN 54 % (41-73); TOTAL CELLS COUNTED 100
--- NOTE | 2021-05-14 10:31 | NUR ---
AM NOTE: PATIENT ALERT AND ORIENTED, VERY SLEEPY THIS AM. SLEEPING THROUGH MOST CARES. DENIES NUMBNESS/TINGLING. STATES HE NORMALLY USES MOTORIZED WHEELCHAIR AT HOME AND DOES NOT WALK. PERRLA. ON ROOM AIR SATING MID 90'S. AT TIMES NEEDING UP TO 2L O2 VIA NASAL CANNULA WHEN SLEEPING. ON TELE SHOWING AFIB WITH HR 80-90'S. DENIES CHEST PAIN/PRESSURE. VITAL SIGNS STABLE. NO SIGNS OF EDEMA. DENIES ABDOMINAL PAIN/NAUSEA. TOLERATING PO DIET. DRINKING SMALL AMOUNTS OF WATER. Q2 TURNING AND NEEDED. SALINE LOCKED. USING CALL LIGHT. ACHS BLOOD SUGARS. RIGHT RADIAL SITE WNL, ARM BOARD IN PLACE. PATIENT DENIES PAIN OVERALL. WILL CONTINUE TO MONITOR. MONITOR.
--- NOTE | 2021-05-14 17:16 | NUR ---
SHIFT SUMMARY: NO ACUTE CHANGES SEE PREVIOUS NOTE. PATIENT REMAINED SLEEPY THROUGHOUT THE SHIFT. WAKING FOR CARES AND TO EAT. REMAINS ON ROOM AIR, SATING MID 90'S. TELE SHOWING AFIB WITH 80-90'S. DENIES CHEST PAIN/PRESSURE THROUGHOUT SHIFT. INCONTINENT WITH ATTENDS IN PLACE. Q2 TURN AND CHECKS. SALINE LOCKED. ACHS BLOOD SUGARS. WORKED WITH PT TODAY, UP TO SIDE OF BED. UP TO BSC WITH STAFF. 2 PERSON ASSIST WITH GAIT BELT AND WALKER. RIGHT RADIAL SITE REMAINS WNL. ARM BOARD IN PLACE. WILL CONTINUE TO MONITOR AND REPORT OFF.
--- NOTE | 2021-05-14 21:30 | NUR ---
ASSUMED CARE OF PATIENT AT APPROXIMATELY 1900 FROM CHRISTOPHER Bocanegra RN. PATIENT ALERT AND ORIENTED X4; FORGETFUL AT TIMES. PATIENT REPORTS W/C BOUND AT HOME; Q2H TURNS; REFUSES ATTENDS CHECKS AT TIMES. PATIENT DENIES PAIN, NUMBNESS, TINGLING, DIZZINESS, AND NAUSEA. RIGHT WRIST HAS ARMBOARD FROM PREVIOUS ANGIOGRAM'S; WNL: PG AND PIV S/L. AFIB ON TELE; OXYGEN SATURATION ABOVE 90% ON ROOM AIR. MEDICAL TELE STATUS; [facility] [place] JOAQU[place]N ASSISTING IN CARE.
--- NOTE | 2021-05-15 01:59 | NUR ---
REPORT CALLED TO SHANTEL JOE, MEDICAL FLOOR RN. PATIENT TO BE TRANFERRED VIA STRETCHER TO ROOM 309 WITH ALL BELONGINGS AND CHART.
--- NOTE | 2021-05-15 02:23 | NUR ---
TRANSFER NOTE: PT ARRIVED TO FLOOR FROM PCU. DENIES PAIN. A/O X 4. SOME FORGETFULNESS. O2 AT 2L/MIN PER NC. MED TELE. REPORTED HX A-FIB AND BBB. CALL LIGHT IN REACH
[2021-05-15 05:32] LABS: Hematocrit 33.3 % (37.0-53.0); Hemoglobin 10.4 g/dL (13.5-17.5); Mean Corpuscular HGB 26.9 pg (26.0-34.0); Mean Corpuscular HGB Conc 31.2 g/dL (31.5-36.5); Mean Corpuscular Volume 86 fL (80-100); Mean Platelet Volume 11.1 fL (9.1-12.4); Platelet Count 208 K/mm3 (150-400); RDW Coefficient Variation 18.6 % (11.7-14.2); RDW Standard Deviation 56.7 fL (35.1-46.3); Red Blood Cell Count 3.87 M/mm3 (4.30-5.90); White Blood Cell Count 16.72 K/mm3 (4.00-11.30)
[2021-05-15 05:51] LABS: Albumin, Blood 3.3 g/dL (3.4-5.0); Anion Gap 11 mmol/L (6-16); Blood Urea Nitrogen 51 mg/dL (8-24); Bun/Creatinine Ratio 23.7 (12.0-20.0); CO2, Blood 24 mmol/L (21-32); Calcium, Blood 9.1 mg/dL (8.5-10.1); Chloride, Blood 97 mmol/L (98-108); Creatinine, Blood 2.15 mg/dL (0.60-1.20); Glomerular Filtration Rate 30 (60-); Glucose, Blood 137 mg/dL (70-99); Magnesium, Blood 1.9 mg/dL (1.6-2.4); Phosphorus, Blood 4.3 mg/dL (2.5-4.9); Potassium, Blood 3.4 mmol/L (3.5-5.5); Sodium, Blood 132 mmol/L (136-145)
--- NOTE | 2021-05-15 16:13 | NUR ---
DAY SHIFT SUMMARY 80 YR OLD ADMITTED FOR NSTEMI, TRANSFERED FROM PCU TO MED FLOOR LAST LOW VISION THERAPIST. FRAGILE SKIN/INTACT. 2L O2 NC. TELE DC'D TODAY PER MD ORDER. POSSIBLE DC HOME WITH PT TOMORROW. PT HAS SLEEP APNEA BUT REFUSES C-PAP D/T FEELING CLOSTROPHOBIC, MOUTH BREATHER. CALL LIGHT WITHIN REACH AND ABLE TO CALL APPROPRIATELY.
--- NOTE | 2021-05-16 01:12 | NUR ---
COW BUYER DOCUMENTATION. ETC REVIEWED AND I AGREE WITH DOCUMENTATION
--- NOTE | 2021-05-16 04:36 | NUR ---
TOOL AND DIE MAKER SUMMARY TELE WAS DISCONTINUED. BREATHING MORE REGULAR THAN NOTED 24 HR PREVIOUS. DENIED PAIN WHEN ASKED. HAS BEEN RESTING QUIETLY WITH FEW INTERRUPTIONS SINCE HS. CALL LIGHT IN REACH
[2021-05-16 04:40] LABS: Hematocrit 31.3 % (37.0-53.0); Hemoglobin 9.8 g/dL (13.5-17.5)
[2021-05-16 04:59] LABS: Albumin, Blood 3.1 g/dL (3.4-5.0); Anion Gap 11 mmol/L (6-16); Blood Urea Nitrogen 58 mg/dL (8-24); Bun/Creatinine Ratio 26.2 (12.0-20.0); CO2, Blood 25 mmol/L (21-32); Calcium, Blood 8.9 mg/dL (8.5-10.1); Chloride, Blood 98 mmol/L (98-108); Creatinine, Blood 2.21 mg/dL (0.60-1.20); Glomerular Filtration Rate 29 (60-); Glucose, Blood 144 mg/dL (70-99); Magnesium, Blood 1.8 mg/dL (1.6-2.4); Phosphorus, Blood 4.8 mg/dL (2.5-4.9); Potassium, Blood 3.2 mmol/L (3.5-5.5); Sodium, Blood 134 mmol/L (136-145)
--- NOTE | 2021-05-16 12:00 | NUR ---
Received referral from nurse critical care registered nurse (Mariia Rosenbaum) on 05/16/2021. Patient is to discharge 05/16/2021 with orders for home health and elected [facility]. Met with patient to further discuss the above. Patient is agreeable to the above. Discussed homebound status definition with patient. Patient verbalized understanding. Discussed what home health is vs what it is not (in home caregivers/housekeeping). Patient verbalized understanding. Discussed the next steps in the process of an initial assessment to determine frequency of visits. Again patient verbalized understanding. Offered a chance for patient to ask questions regarding the above of which there were none. Gathered all supporting documentation for referral (face sheet, face to face, med list, H&P, discharge summary, and most recent PT assessment) and sent to [facility] for review. No further interventions required. Nicole Roach Referral Liaison
[2021-05-16] MEDS ORDERED: ISOSORBIDE MONO60 MG PO (16:09)
[2021-05-16] MEDS ORDERED: ATOR80 PO (16:10)
[2021-05-16] MEDS ORDERED: ELIQUIS2.5 MG PO (16:10)
[2021-05-16] MEDS ORDERED: CLOP75 PO (16:11)
--- NOTE | 2021-05-16 17:05 | NUR ---
DISCHARGE SUMMARY PT A/O X3; PLEASANT AND COOPERATIVE WITH CARE. PT WORKED WITH PHYSICAL AND OCCUPATIONAL THERAPY AND IS A 1 PERSON MINIMAL ASSIST TO GET UP. HE USES A WHEELCHAIR AT BASELINE AND STANDS AND PIVOTS TO THE CHAIR. PT ADMITTED FOR NSTEMI AND UNDERWENT AN ANGIO WITH STENTS PLACED. STENT PAPERWORK PROVIDED TO PATIENT. PT DC'D BACK TO [place] AND TRANSPORTED BY AMBULANCE.
== END 2021-05-16 16:52 | disposition home health service (06) | DRG 246 ==
LOC: ER 14:56 → PCU 22:11 → MEDS 05-15 02:21 → ENPENDDIS 05-16 11:10 → MEDS 05-16 16:52
PROVIDERS: Family Medicine; Internal Medicine; Internal Medicine Cardiovascular Disease; Internal Medicine Nephrology; Pharmacist; Student in an Organized Health Care Education/Training Program; ADMIT Internal Medicine
PROC: 027035Z Dilation of Coronary Artery, One Artery with Two Drug-eluting Intraluminal Devices, Percutaneous Approach (ICD-10-PCS; principal; 2021-05-10)
PROC: 4A023N7 Measurement of Cardiac Sampling and Pressure, Left Heart, Percutaneous Approach (ICD-10-PCS; 2021-05-10)
PROC: B2111ZZ Fluoroscopy of Multiple Coronary Arteries using Low Osmolar Contrast (ICD-10-PCS; 2021-05-10)
PROC: 02F13ZZ Fragmentation in Coronary Artery, Two Arteries, Percutaneous Approach (ICD-10-PCS; 2021-05-12)
PROC: 02713ZZ Dilation of Coronary Artery, Two Arteries, Percutaneous Approach (ICD-10-PCS; 2021-05-12)
PROC: 027035Z Dilation of Coronary Artery, One Artery with Two Drug-eluting Intraluminal Devices, Percutaneous Approach (ICD-10-PCS; 2021-05-12)
DX: I21.4 Non-ST elevation (NSTEMI) myocardial infarction (principal); N17.0 Acute kidney failure with tubular necrosis; I48.19 Other persistent atrial fibrillation; I13.0 Hypertensive heart and chronic kidney disease with heart failure and stage 1 through stage 4 chronic kidney disease, or unspecified chronic kidney disease; N25.81 Secondary hyperparathyroidism of renal origin; E87.1 Hypo-osmolality and hyponatremia; E87.3 Alkalosis; Z20.822 Contact with and (suspected) exposure to COVID-19; R19.7 Diarrhea, unspecified; Z68.32 Body mass index [BMI] 32.0-32.9, adult; I25.5 Ischemic cardiomyopathy; E87.6 Hypokalemia; N18.30 Chronic kidney disease, stage 3 unspecified; E78.5 Hyperlipidemia, unspecified; E03.9 Hypothyroidism, unspecified; E88.09 Other disorders of plasma-protein metabolism, not elsewhere classified; I95.9 Hypotension, unspecified; E11.22 Type 2 diabetes mellitus with diabetic chronic kidney disease; J45.909 Unspecified asthma, uncomplicated; F32.A Depression, unspecified; D63.1 Anemia in chronic kidney disease; E66.01 Morbid (severe) obesity due to excess calories; Z96.1 Presence of intraocular lens; Z98.1 Arthrodesis status; Z90.89 Acquired absence of other organs; Z79.4 Long term (current) use of insulin; Z79.02 Long term (current) use of antithrombotics/antiplatelets; Z79.82 Long term (current) use of aspirin; Z79.899 Other long term (current) drug therapy
CPT/HCPCS: 0241U; 36415; 71045; 74177; 76937; 80048; 80053; 80069; 81001; 82550; 82553; 82803; 82947; 83735; 83880; 84100; 84132; 84484; 85014; 85018; 85025; 85027; 85347; 85379; 85520; 85610; 86850; 86900; 86901; 87086; 93005; 93010; 93454; 94660; 94762; 97162; 97166; 97530; 99152; 99153; 99285-25; A9270; C1725; C1751; C1761; C1769; C1874; C1887; C1894; C8929; C9600; C9602; J1160; J1644; J1940; J2250; J2270; J2916; J3010; J7030; J7040; J7050; Q9957; Q9967

== ENCOUNTER 2021-06-09 09:01 | Inpatient (IN) | payer OTHER ==
[~2021-06-09] VITALS: Ht 188 cm; Wt 85.0 kg
[~2021-06-09 09:01] MED LIST changes: +ATOR80 PO; +BISA10S PR; +CLOP75 PO; +ELIQUIS2.5 MG PO; +FERSU300 PO; +ISOSORBIDE MONO60 MG PO; +LOPE2C PO; +METO25ER PO; +MIRALAX17 GM PO; +NITR.4SL SL; +ONDA4 PO; +SENN187 PO
[2021-06-09 09:48] LABS: BASOPHILS ABSOLUTE AUTO 0.02 K/mm3 (0.00-0.23); BASOPHILS PERCENT AUTO 0 % (0-2); EOSINOPHILS ABSOLUTE AUTO 0.03 K/mm3 (0.00-0.68); EOSINOPHILS PERCENT AUTO 0 % (0-6); Hematocrit 32.6 % (37.0-53.0); Hemoglobin 10.2 g/dL (13.5-17.5); Mean Corpuscular HGB 27.9 pg (26.0-34.0); Mean Corpuscular HGB Conc 31.3 g/dL (31.5-36.5); Mean Corpuscular Volume 89 fL (80-100); Platelet Count 141 K/mm3 (150-400); RDW Coefficient Variation 18.2 % (11.7-14.2); RDW Standard Deviation 59.5 fL (35.1-46.3); Red Blood Cell Count 3.66 M/mm3 (4.30-5.90); White Blood Cell Count 9.88 K/mm3 (4.00-11.30)
[2021-06-09 09:50] LABS: IMMATURE GRAN ABSOLUTE AUTO 0.16 K/mm3 (0.00-0.10); IMMATURE GRAN PERCENT AUTO 2 % (0-1); LYMPHOCYTES ABSOLUTE AUTO 1.75 K/mm3 (0.84-5.20); LYMPHOCYTES PERCENT AUTO 18 % (21-46); MONOCYTES ABSOLUTE AUTO 2.28 K/mm3 (0.16-1.47); MONOCYTES PERCENT AUTO 23 % (4-13); NEUTROPHILS ABSOLUTE AUTO 5.64 K/mm3 (1.96-9.15); NEUTROPHILS PERCENT AUTO 57 % (41-73)
[2021-06-09 10:02] LABS: Albumin, Blood 3.1 g/dL (3.4-5.0); Albumin/Globulin Ratio 0.7 (0.8-1.8); Bilirubin, Total 0.9 mg/dL (0.1-1.0); Bun/Creatinine Ratio 13.3 (12.0-20.0); Creatinine, Blood 1.95 mg/dL (0.60-1.20); Globulin, Blood 4.2 g/dL (2.2-4.0); Potassium, Blood 4.4 mmol/L (3.5-5.5); Total Protein, Blood 7.3 g/dL (6.4-8.2)
[2021-06-09 10:46] LABS: Magnesium, Blood 1.7 mg/dL (1.6-2.4); Phosphorus, Blood 3.5 mg/dL (2.5-4.9)
[2021-06-09 15:13] LABS: PCO2 Arterial 32.2 mmHg (35-45); pH Blood Arterial 7.39 (7.35-7.45)
--- NOTE | 2021-06-09 18:20 | NUR ---
PCU ADMIT/SHIFT SUMMARY PT ARRIVED TO PCU AT APPROXIMATELY 1500. A&Ox4 WITH POOR RECOLLECTION OF HEALTH HISTORY. PT RR 30-40'S WITH ACCESSORY MUSCLE USE. SPO2>92% RA-2L NC. BP SOFT MAP ABOVE 60, OTHERWISE VSS. PT INCONTINENT OF URINE AND STOOL. ONE SMEAR OF A BM THIS SHIFT. WILL CONTINUE TO MONITOR AND PROVIDE CARE UNTIL REPORT TO NOC.
--- NOTE | 2021-06-09 18:43 | NUR ---
this nurse agrees w/ student nurse documentation this shift.
[2021-06-10 04:12] LABS: Hematocrit 32.3 % (37.0-53.0); Hemoglobin 9.9 g/dL (13.5-17.5); Mean Corpuscular HGB 27.4 pg (26.0-34.0); Mean Corpuscular HGB Conc 30.7 g/dL (31.5-36.5); Mean Corpuscular Volume 90 fL (80-100); Mean Platelet Volume 11.5 fL (9.1-12.4); Platelet Count 151 K/mm3 (150-400); RDW Standard Deviation 59.7 fL (35.1-46.3); Red Blood Cell Count 3.61 M/mm3 (4.30-5.90)
[2021-06-10 04:33] LABS: Bun/Creatinine Ratio 14.5 (12.0-20.0); Creatinine, Blood 2.14 mg/dL (0.60-1.20); Potassium, Blood 4.3 mmol/L (3.5-5.5)
--- NOTE | 2021-06-10 06:47 | NUR ---
SHIFT SUMMARY ASSUMED CARE OF PT AT 1900. PT IS A/OX4. HEART SOUNDS REGULAR, TELE SHOWED AFIB T/O THE NIGHT. LUNG SOUNDS CLEAR. PT RESPIRATIONS WERE INCREASED T/O THE NIGHT. PT DENIES SOB UNTIL NC WAS TAKEN OUT, PT IS ONLY ON 1L NC, SATURATIONS REMAMINED ABOVE 95% BUT STILL REQUESTED IT BE ON. PT WAS INCONTIENT T/O THE NIGHT. PT WAS ABLE TO STAND WITH 2P ASSIST. PT HAD NO NEW COMPLAINTS BUT LOOKED VERY LETHARGIC AND PALE. PT STATES FEELING BETTER. PT DAUGHTER GABINO CALLED TO CHECK IN AND WILL COME IN LATER THIS DAY.
[2021-06-10] MEDS ORDERED: ATOR80 PO (11:21)
[2021-06-10] MEDS ORDERED: CLOP75 PO (11:21)
[2021-06-10] MEDS ORDERED: Prozac40 MG PO (11:22)
[2021-06-10] MEDS ORDERED: Isosorbide Mono30 MG PO (11:24)
[2021-06-10] MEDS ORDERED: IRON TABLET PO (11:24)
[2021-06-10] MEDS ORDERED: METO25ER PO (11:25)
[2021-06-10] MEDS ORDERED: SENN187 PO (11:25)
[2021-06-10] MEDS ORDERED: OMEP20ER PO (11:25)
[2021-06-10] MEDS ORDERED: LEVSOD25 PO (11:26)
--- NOTE | 2021-06-10 16:55 | NUR ---
SHIFT SUMMARY PT IS ALERT AND ORIENTED WITH MINIMAL CONFUSION. HE HAS REMAINED VERY SOB AND IS VISIBILY STRUGGLING AND WHEEZING. HE WAS CHANGED FROM 1L NC TO A BIPAP. SATS IMPROVED IN THE 90'S AND HE FEELS SOME RELIEF. NO JVD, NO EDEMA, SOME CRACKLES IN HIS LUNG BASES IMPLEMENTED A CONDOM CATHETER VIA DR ORDERS FOR STRICT OUPUT MEASURING, I NOTICED SOME REDNESS AND SENSITIVITY IN HIS MIAN AREA. MEDICATED PER EMAR TODAY AND WILL CONTINUE TO MONITOR. ONE ACUTE EPISODE OF AFIB IN THE 140'S, DR PRESCRIBED METOPROLOL AND CONTINUED PREVIOUS HOME MEDS.
[2021-06-10 22:24] LABS: Base Excess Venous -3.5 mmol/L; Bicarbonate Venous 21.2 mmol/L (24.0-30.0); PO2 Venous 44.5 mmHg (38-42)
[2021-06-10 22:25] LABS: pH Blood Venous 7.33 (7.34-7.37)
[2021-06-11 05:26] LABS: Base Excess Venous -5.5 mmol/L; Bicarbonate Venous 19.6 mmol/L (24.0-30.0); PCO2 Venous 44.2 mmHg (38-42); PO2 Venous 46.2 mmHg (38-42); pH Blood Venous 7.29 (7.34-7.37)
[2021-06-11 05:34] LABS: Hematocrit 34.2 % (37.0-53.0); Hemoglobin 10.6 g/dL (13.5-17.5); Mean Corpuscular HGB 28.1 pg (26.0-34.0); Mean Corpuscular Volume 91 fL (80-100); Mean Platelet Volume 11.1 fL (9.1-12.4); Platelet Count 157 K/mm3 (150-400); RDW Coefficient Variation 18.1 % (11.7-14.2); RDW Standard Deviation 59.2 fL (35.1-46.3); Red Blood Cell Count 3.77 M/mm3 (4.30-5.90); White Blood Cell Count 10.81 K/mm3 (4.00-11.30)
[2021-06-11 06:01] LABS: Albumin, Blood 3.2 g/dL (3.4-5.0); Anion Gap 11 mmol/L (6-16); Blood Urea Nitrogen 44 mg/dL (8-24); Bun/Creatinine Ratio 17.1 (12.0-20.0); CO2, Blood 23 mmol/L (21-32); Calcium, Blood 9.1 mg/dL (8.5-10.1); Chloride, Blood 103 mmol/L (98-108); Creatinine, Blood 2.57 mg/dL (0.60-1.20); Glomerular Filtration Rate 24 (60-); Glucose, Blood 173 mg/dL (70-99); Phosphorus, Blood 5.6 mg/dL (2.5-4.9); Potassium, Blood 4.6 mmol/L (3.5-5.5); Sodium, Blood 137 mmol/L (136-145)
--- NOTE | 2021-06-11 06:21 | NUR ---
SHIFT SUMMARY ASSUMED CARE OF PT AT 1900. PT WAS ON BIPAP AT THE START OF SHIFT BUT WAS UNCOMFORTABLE AND WANTED TO TAKE A BEARK. PT WAS ONLY OFF THE BIPAP FOR ABOUT 5 MIN WHEN HE ASKED TO HAVE IT BACK ON. 2199 HOSPITLAIST ROXY WAS NOTIFIED AND CAME TO SEE PT DUE TO CONCERNS OF INCREASED HR IN THE 120-130BPM RANGE, INCREASED RESPIRIATIONS DESPITE BEING ON BIPAP, PERFUSE SWEATING, AND CHANGE IN [place]. 5 OF METOPROLOL GIVEN, NEW CXR, AND ABG DONE. PT RATE DECREASED TO 110S, AND RT SAID ABG WAS NOT TOO BAD. DR RAMSEY ORDERED NEW ABG FOR THE AM. PT REMAINED HAVING INCREASED RESPIRATIONS BUT OTHER VITALS STABLE. AT AROUND 0300 PT HR INCREASED TO THE 120S AGAIN AND EXTREMITES STARTED TO BECOME VERY COOL AND KNEES MOTTLED. RECTAL TEMP SHOWED 100.0. PT WAS GIVEN ANOTHER 5 METOPROLOL AND PT IS NOW AVERAGING 100S. PT THEN STARTED TO HAVE GRACE [place] AND WOULD DESAT TO 50%; RT NOTIFIED. BIPAP SETTINGS INCREASED AND O2 WAS ADDED. PT SATURATIONS HAVE INCREASED TO 95% AND ABOVE BUT PT IS MORE SOMNLENT. HOSPITALIST ARMANDO WAS UPDATED AND SUGGESTED PALLITIVE CARE CONSULT AND FOR THE FAMILY TO BE NOTIFIED OF PT CHANGE.
--- NOTE | 2021-06-11 10:45 | NUR ---
Initial Pal Care consult visit - New referral received. RN stopped me in [facility] to request visit KAL due to pt's request to decline BIPAP use and verbalizing that he felt he was dying. Pt requesting comfort care and RN had updated pt's son, Moises, already on events of the night and pt's wishes. Visit made immediately to the bedsdie. Pt appears very anxious with work of respiration. Pt agreeable to NC O2 or HFNC delivery but states he feels like he is suffocating when bipap applied. Pt appears profoundly fatigued. He is able to answer questions in 1-2 word sentences and nods. He indicated he does not use oxygen or CPAP/BPAP at home. He is here for an exacerbation of CHF. RN reports she discussed hospice with pt's son due to pt's expressed wishes for EOL care. Pt's EF is 40-45% per EMR and pt may not meet hospice criteria for dx of CHF. Pt denies pain, nausea, MATTHEWS, sore throat. Only c/o is of extreme anxiety and breathlessness. When exploring options with pt I asked if he would be willing to cont using bipap as needed if we could premedicate and control his anxiety better. Pt initially indicated he just wanted to be placed on comfort care. I reviewed benefits of bipap, how it worked, consequences of going without, rising CO2, resp distress, . Pt agreed to try bipap if we could tx his anxiety. VM left for Dr and report given to her in person moments later, along with nurses. Pt does not take anything for anxiety at home and has not been on any pain medications/opiods. I recommended starting with a judicious dose of Roxanol 5-10 mg SL q2hr prn for air hunger and Ativan 0.5-1 mg PO q4 hr prn for extreme anxiety not well managed with the Roxanol/tx for air hunger. ordered Roxanol 1-2mg SL q4 prn anxiety/air hunger. Discussed with RN to report to Dr if this was not effective for controlling pt's extreme anxiety and air hunger so that dosing could be titrated and pt could tolerate BIPAP use. Pt expressed thans for our visit and asked that I visit again tomorrow, which I will do to assess his s/s management and provide additional support to pt. Pt asked me if he was dying. We discussed the progressive nature of his CHF, advanced age and potential rapid decline, especially if he could not tolerate bipap and diuresis. He agreed to plan of giving diuretics and bipap time to work to see if he could improve enough to enjoy his previous level of independence and quality of life and to return to [facility], where he resides.
[2021-06-12 03:47] LABS: Hematocrit 32.3 % (37.0-53.0); Hemoglobin 9.9 g/dL (13.5-17.5); Mean Corpuscular HGB 27.3 pg (26.0-34.0); Mean Corpuscular HGB Conc 30.7 g/dL (31.5-36.5); Mean Corpuscular Volume 89 fL (80-100); Mean Platelet Volume 11.1 fL (9.1-12.4); NRBC ABSOLUTE 0.02 K/mm3 (0.00-0.02); NRBC Auto 0.2 /100 WBC (0.0-0.2); Platelet Count 155 K/mm3 (150-400); RDW Coefficient Variation 18.2 % (11.7-14.2); RDW Standard Deviation 58.7 fL (35.1-46.3); Red Blood Cell Count 3.62 M/mm3 (4.30-5.90); White Blood Cell Count 10.43 K/mm3 (4.00-11.30)
[2021-06-12 04:09] LABS: Albumin, Blood 3.2 g/dL (3.4-5.0); Anion Gap 12 mmol/L (6-16); Blood Urea Nitrogen 56 mg/dL (8-24); Bun/Creatinine Ratio 19.6 (12.0-20.0); CO2, Blood 22 mmol/L (21-32); Calcium, Blood 9.1 mg/dL (8.5-10.1); Chloride, Blood 103 mmol/L (98-108); Creatinine, Blood 2.85 mg/dL (0.60-1.20); Glomerular Filtration Rate 21 (60-); Glucose, Blood 170 mg/dL (70-99); Phosphorus, Blood 5.2 mg/dL (2.5-4.9); Potassium, Blood 4.4 mmol/L (3.5-5.5); Sodium, Blood 137 mmol/L (136-145)
[2021-06-12 05:35] LABS: PCO2 Arterial 44.1 mmHg (35-45); PO2 Arterial 125 mmHg (80-100); pH Blood Arterial 7.33 (7.35-7.45)
--- NOTE | 2021-06-12 06:30 | NUR ---
NOC SHIFT SUMMARY PT SLEPT WELL OVERNIGHT. ORIENTED X4, VSS PER PT TREND. TOLERATING BIPAP WELL. NO COMPLAINTS OF PAIN OR ANXIETY. CONDOM CATH TO DD WITH MINIMAL UOP (100 FOR SHIFT) PT REPOSITIONED WHEN ALLOWED AND EDUCATED ON IMPORTANCE OF TURNING FREQUENTLY. ON BIPAP MAJORITY OF THE NIGHT WITH SHORT BREAKS FOR WATER AND APPLICATION OF NC @ 3L. WILL PASS ON TO DAY RN
--- NOTE | 2021-06-12 10:50 | NUR ---
Pal Care visit - Update obtained from EMR and bedside RN. Pt was out of the room for a f/u CXR initially. Assisted with transfer of pt from [place] to bed. No grimacing noted. Pt states he is feeling better and he appears less anxious. Continues to have increased work of breathing. CXR report reviewed, see in EMR. BNP remains >1900. Pt appears dry with no edema noted in LE. Pt is now medical floor status. Will cont to follow and reassess for increasing/persistent s/s and support. Pt has planned visit with a beloved cat today and is happy about that. Son to bring pt's cat in per RN.
--- NOTE | 2021-06-12 18:34 | NUR ---
SHIFT SUMMARY PT IS A&OX4, HE ENERGY LEVEL AND COOPERATION HAVE IMPROVED, AND HE HAS TOLERATING COMING OFF OF THE BIPAP. HE ONLY SPENT ABOUT 4 HOURS TOTAL ON THE BIPAP TODAY. DIURETICS DISCONINTUED, 600 ML OUTPUT TODAY. NO ACUTE EVENTS, WILL PASS ONTO NEXT RN.
[2021-06-13 04:16] LABS: Anion Gap 7 mmol/L (6-16); Blood Urea Nitrogen 52 mg/dL (8-24); Bun/Creatinine Ratio 19.9 (12.0-20.0); CO2, Blood 27 mmol/L (21-32); Calcium, Blood 8.8 mg/dL (8.5-10.1); Chloride, Blood 103 mmol/L (98-108); Creatinine, Blood 2.61 mg/dL (0.60-1.20); Glomerular Filtration Rate 24 (60-); Glucose, Blood 141 mg/dL (70-99); Phosphorus, Blood 4.1 mg/dL (2.5-4.9); Sodium, Blood 137 mmol/L (136-145)
--- NOTE | 2021-06-13 05:06 | NUR ---
Overnoc without issues, VSS (BP soft with good maps), 2-3L NC or CPAP, pain free, Valdovinos cath with 300 out for 12 hrs, will continue to monitor DENNISE Subramanian
--- NOTE | 2021-06-13 10:13 | NUR ---
AM NOTE PATIENT IS A&OX4, PLEASANT, AND COOPERATIVE W CARE. TELE AFIB 110'S. SPO2>95% 1-3L O2 NC, TITRATING IT DOWN TOLERATED. VSS. FINE CRACKLES STILL PRESENT AT LOWER LOBES B/L. CONDOM CATHETER PATENT DRAINING YELLOW URINE PER GRAVITY. PATIENT IS DRINKING ORAL FLUIDS ENCOURAGED BY THIS AM.
--- NOTE | 2021-06-13 16:58 | NUR ---
SHIFT SUMMARY PATIENT REMAINED PLEASANT, COOPERATIVE WITH CARE, AND A&OX4 T/O SHIFT. PATIENT WAS SWITCHED TO MEDICAL STATUS TODAY. TELE AFIB 90-100S, SPO2>95% ON BIPAP, BP SOFT, BUT OTHERWISE VSS. PATIENT DID C/O OF DIFFICULTY BREATHING AMID THE SPO2>95% ON 1-2L O2 NC, HE WAS SWITCHED TO BIPAP. ENCOURAGED ORAL FLUID INTAKE T/O SHIFT. PATIENT REMAINS ON STRICT I&O. CONDOM CATHETER DRAINING YELLOW URINE PER GRAVITY. PATIENT IS ON BEDREST, REPOSITIONING Q2HRS. WILL CONTINUE TO MONITOR UNTIL REPORT GIVEN TO THE ONCOMING SHIFT.
--- NOTE | 2021-06-13 17:53 | NUR ---
I have reviewed the nuring students documentation and am in agreement. This afternoon, pt reports feeling sob, increased resp effort noted and use of accessory muscles, pt requesting bipap, placed bipap with releif noted. Pt off bipap for short breaks and placed back on 2l o2 via nc for dinner, appears to be tolerating well, made aware. Encouraged po intake. New orders from Dr Arciniega for medical without tele. Bp soft this afternoon, other vss. No other acute changes noted; no s/sx of distress noted. Will continue to monitor unitl report given to oncoming rn.
--- NOTE | 2021-06-13 21:34 | NUR ---
ASSUMPTION OF CARE Assumed care of pt at 1900. A/Ox4, slow to respond secondary to SOB. Sitting high fowlers in bed watching television. Reports no pain, CP/pressure. Satting 100% on 2L NC. SBP low 90's. MAP in 70's.
[2021-06-14 03:52] LABS: Albumin, Blood 3.1 g/dL (3.4-5.0); Anion Gap 7 mmol/L (6-16); Blood Urea Nitrogen 49 mg/dL (8-24); Bun/Creatinine Ratio 21.5 (12.0-20.0); CO2, Blood 28 mmol/L (21-32); Chloride, Blood 102 mmol/L (98-108); Creatinine, Blood 2.28 mg/dL (0.60-1.20); Glomerular Filtration Rate 28 (60-); Glucose, Blood 148 mg/dL (70-99); Phosphorus, Blood 3.1 mg/dL (2.5-4.9); Sodium, Blood 137 mmol/L (136-145)
--- NOTE | 2021-06-14 06:03 | NUR ---
SHIFT SUMMARY Patient remained A/Ox4. Bedrest. Satting 100% on 2L NC. LS clear upper, and dim at bases. Shallow breathing pattern. Occasionally productive cough producing SBP low 90's. MAP in 70's. Tele Dc'd this shift, prior to that had Afib with BBB. Extremities cold with faint pulses t/o and cap refill more than 3 seconds. Fluid restriction in place 1000ml left. Condom catheter changed this shift, draining to gravity for accurate I&O's. Scant amount of urine. Will report to dayshift DENNISE
--- NOTE | 2021-06-14 09:00 | NUR ---
ASSUMED CARE REPORT FROM KAE BOWDEN AT 0700. PT MED s TELE. RESTING IN BED. A&OX 3. ANSWERS QUESTIONS APPROPRIATELY. C/O INTERMITTANT SOB, WORSE c EXERTION. MINIMALLY ABLE TO ASSIST c ROLLING AND REPOSITIONING IN BED. LUNGS DIM THROUGHOUT. TACHYPNEIC AND SHALLOW RESP. 2L VIA NC. O2 SATS >95%. ABD ROUND, SOFT, NON TENDER. BT X 4. CONDOM CATH IN PLACE, CLEAR YELLOW URINE IN DRAINAGE BAG. BP STABLE, IRREGULAR RHYTHM, RATE 90'S. WILL CONTINUE TO MONITOR.
--- NOTE | 2021-06-14 16:12 | NUR ---
Summary of pt visit and case conferences with RNs, , [facility], Boiler House Inspector and son, Moises. After phone conversations with bedside RN and [facility] earlier in the day, visit made to pt. Pt was on Bipap and appears to have increased work of breathing but not as acutely as Sunday am when I first met him. He is slightly anxious. He denies pain but c/o discomfort of face/nose with mask & bodily aches from bedrest. Earlier, OT attempted visit but pt felt too fatigued. I updated pt on my conversation with [place] wildlife manager re: appointment today at his appartment to discuss going back on hospice. I asked pt if that is what he would like to do and he nodded and whispered yes. I talked to him about transitioning to comfort care if his s/s were not well managed with current tx. Pt agreeable to care as is & would want comfort care if he becomes more dyspnic, painful, anxious, distressed. Discussed all of above with CM, Son-Dr Moises, RN. VO obtained for increase in dose of Roxanol for air hunger to 5-10mg SL q4h prn and hospice referral. Called [facility] with an update and they will update Linda at [place]. Of note, when I called to update pt's son, he states that he was completely unaware that pt had already been on hospice previously. Son states he is supportive of any plan of care that Antonio decides on and was very appreciative of the update and information. He said his dad has always communicated better with animals than people and told some great good humored stories of events in the past involving his dad and pets and wild animals that were drawn to him. Plan f/u per Pal Care daily for s/s management and support.
--- NOTE | 2021-06-14 16:48 | NUR ---
SHIFT SUMMARY PT REMAINS ALERT AND ORIENTED. BP STABLE. O2 SATS REMAIN ABOVE 90%. PT ON BIPAP MOST OF SHIFT AND TOLERATING SMALL BREAKS ON 2L NC. PT DENIES ANY PAIN FOR THIS RN, BUT STATES DISCOMFORT AT TIMES. PT REPOSITIONED Q2H. DAUGHTER UPDATED PT REQUESTED THIS SHIFT. PER PT AND FAMILY, IF PT DECLINES HE WOULD LIKE TO TRANSITION TO COMFORT CARE. WILL CONTINUE TO MONITOR AND REPORT TO ONCOMING RN
--- NOTE | 2021-06-15 05:23 | NUR ---
SHIFT SUMMARY NO ACUTE CHANGES THIS SHIFT. SEE SHIFT ASSESSMENT. PT USED NC 1L TO MAINTIAN SATS, DID DIP TO 80'S BRIEFLY WHILE SLEEPING. PT THEN WORE BIPAP DURING SLEEP. PT AWAKENED THIS AM DISORIENTED. PT STATES, "I HAVE HAD A BREAK FROM [facility]!" DID NOT KNOW WHERE HE WAS OR WHY, THOUGH HE DID KNOW WHO STAFF WERE. cONDOM CATH ON DRAINING A SMALL AMOUNT OF YELLOW URINE TO GRAVITY. PT DID NOT DRINK MUCH THIS SHIFT, THOUGH FLUIDS WERE ENCOURAGED WITHIN HIS FR RANGE. PT STATES, "WELL, YOU PEOPLE TOLD ME TO WATCH WHAT I DRINK" AND REFUSED TO DRINK MORE THAN NECESSARY TO SWALLOW PILLS. PT SLEPT OFF AND ON T/O NIGHT. REPOSITIONED BY RN WELL REPOSITIONED SELF IN BED. CALL LIGHT IN REACH.
[2021-06-15 05:55] LABS: Albumin, Blood 3.2 g/dL (3.4-5.0); Anion Gap 8 mmol/L (6-16); Blood Urea Nitrogen 48 mg/dL (8-24); Bun/Creatinine Ratio 24.5 (12.0-20.0); CO2, Blood 24 mmol/L (21-32); Calcium, Blood 9.3 mg/dL (8.5-10.1); Chloride, Blood 103 mmol/L (98-108); Creatinine, Blood 1.96 mg/dL (0.60-1.20); Glomerular Filtration Rate 33 (60-); Glucose, Blood 168 mg/dL (70-99); Phosphorus, Blood 3.3 mg/dL (2.5-4.9); Potassium, Blood 4.4 mmol/L (3.5-5.5); Sodium, Blood 135 mmol/L (136-145)
--- NOTE | 2021-06-15 09:31 | NUR ---
AM NOTE: PATIENT LETHARGIC AND CONFUSED THIS AM. ASKING WHERE HE IS. ALERT TO SELF AND FAMILY. MORE AWAKE THROUGHOUT MORNING. OVERALL VERY WEAK. WORKING WITH OT THIS AM. DENIES NUMBNESS/TINGLING. ON 1-3L NASAL CANNULA SATING MID 90'S. OCCASIONAL HARSH HACKING COUGH. LUNGS SOUNDING CLEAR AND DIM IN BASES. RR 20-30 THIS AM. PATIENT REFUSING TO WEAR CPAP MASK WHEN WORK OF BREATHING WAS INCREASED THIS AM. MEDICAL STATUS, NO TELE. BP STABLE. HR 80'S. DENIES CHEST PAIN/PRESSURE. NO SIGNS OF EDEMA. CONDOM CATH IN PLACE DRAINING NURIA COLORED URINE. PATIENT REF STOOL SOFTNERS THIS AM. ATTENDS IN PLACE. COMPLAINS OF STOMACH CRAMPS AND NAUSEA THIS AM, SEE EMAR FOR ZOFRAN ADMINISTRATION. TOLERATING PO DIET, EATING SMALL AMOUNTS. FR OF 1500ML/DAY IN PLACE. CALL LIGHT IN REACH. ACHS BLOOD SUGARS. SPOKE WITH DAUGHTER ANDRZEJ AND SON DRE ON PHONE THIS AM TO PROVIDE UPDATE. WILL CONTINUE TO MONITOR.
--- NOTE | 2021-06-15 17:24 | NUR ---
SHIFT SUMMARY: NO ACUTE CHANGES, SEE PREVIOUS AM NOTE FOR UPDATES. NEURO REMAINS UNCHANGED. ON 1L NASAL CANNULA MOST OF SHIFT, WEARING BIPAP WHEN RESPIRATORY WORK INCREASED. MEDICATED ONCE FOR AIR HUNGER, SEE EMAR. OCCASIONAL COUGH. NO TELE. BP REMAINS STABLE. DENIES CHEST PAIN/PRESSURE. TOLERATING PO DIET, EATING SMALL AMOUNTS. VISIT THIS AFTERNOON FROM FAMILY AND SERVICE ANIMAL. SPOKE WITH CASE MANAGEMENT AND DR. ZUÑIGA, PLAN FOR PATIENT TO DISCHARGE HOME TOMORROW WITH HOSPICE. PATIENT AND FAMILY UPDATED. EATING DINNER AT THIS TIME. CALL LIGHT IN REACH. DENIES NEEDS. WILL CONTINUE TO MONITOR AND REPORT OFF TO ONCOMING RN.
--- NOTE | 2021-06-15 21:07 | NUR ---
TRANSFER TO [place] [id number] BY DENNISE ULRICH FROM [facility]. PT ARRIVED AT 2103 BY ILIANA FOR CHF EXACERBATION. PT ON 1L NC, WEARS CPAP AT NIGHT. RT TO COME AND SET UP. PT IS SLOW TO RESPOND TO QUESTIONS, BUT ANSWERS APPROPRIATELY. NURSE STS PT BECOMES DISORIENTED AT NIGHT, BUT IS ABLE TO REORIENT QUICKLY. HX AFIB WITH RVR. PT IS A ONE PERSON ASSIST
--- NOTE | 2021-06-16 01:05 | NUR ---
PT STS HAVING DIFFICULT TIME BREATHING AFTER TAKING OFF HIS BIPAP. STS DOES NOT WANT TO WEAR IT. PT PLACED BACK ON NC AT 4L. PT OFFERED ROXANOL A WAY TO HELP WITH BREATHING DIFFICULTY. PT DECLINES. PT HAS SATS OF 96-98% CURRENTLY.
--- NOTE | 2021-06-16 04:00 | NUR ---
SHIFT SUMMARY PT TX TO ME FROM PCU. PLAN IS TO HAVE PT DC'D TODAY AT 1130 TO GO HOME ON HOSPICE. PT TOOK BIPAP OFF AND HIS O2 BEGAN TO DESATURATE. PT PLACED ON 4L NC AND HIS O2 SATURATIONS ARE 94-98%
[2021-06-16] MEDS ORDERED: ELIQUIS2.5 MG PO (10:54)
[2021-06-16] MEDS ORDERED: ANTIFUNGAL POWD71 GM TOP (10:58)
[2021-06-16] MEDS ORDERED: MIRALAX17 GM PO (10:58)
--- NOTE | 2021-06-16 12:09 | NUR ---
update britol on pt increased air hunger. review of medications with nursing. pt medicated before transport.
== END 2021-06-16 11:54 | disposition hospice, home (50) | DRG 291 ==
LOC: ER 09:01 → PCU 12:00 → MEDS 06-15 21:00
PROVIDERS: Family Medicine; Physician Assistant; ADMIT Internal Medicine
PROC: 5A09457 Assistance with Respiratory Ventilation, 24-96 Consecutive Hours, Continuous Positive Airway Pressure (ICD-10-PCS; principal; 2021-06-10)
DX: I13.0 Hypertensive heart and chronic kidney disease with heart failure and stage 1 through stage 4 chronic kidney disease, or unspecified chronic kidney disease (principal); J96.01 Acute respiratory failure with hypoxia; I50.23 Acute on chronic systolic (congestive) heart failure; I48.20 Chronic atrial fibrillation, unspecified; N17.9 Acute kidney failure, unspecified; J98.11 Atelectasis; Z66 Do not resuscitate; Z51.5 Encounter for palliative care; E03.9 Hypothyroidism, unspecified; E78.5 Hyperlipidemia, unspecified; F32.A Depression, unspecified; N18.30 Chronic kidney disease, stage 3 unspecified; E11.22 Type 2 diabetes mellitus with diabetic chronic kidney disease; G47.00 Insomnia, unspecified; K59.00 Constipation, unspecified; K21.9 Gastro-esophageal reflux disease without esophagitis; N32.81 Overactive bladder; R62.7 Adult failure to thrive; D69.6 Thrombocytopenia, unspecified; D50.9 Iron deficiency anemia, unspecified; Z96.1 Presence of intraocular lens; Z68.25 Body mass index [BMI] 25.0-25.9, adult; Z87.820 Personal history of traumatic brain injury; Z90.89 Acquired absence of other organs; Z98.1 Arthrodesis status; Z95.5 Presence of coronary angioplasty implant and graft; Z98.890 Other specified postprocedural states; Z79.01 Long term (current) use of anticoagulants; Z79.899 Other long term (current) drug therapy
CPT/HCPCS: 36415; 36600; 71045; 71046; 80048; 80053; 80069; 82306; 82803; 82947; 83690; 83735; 83880; 84100; 84145; 84443; 84484; 85025; 85027; 93005; 93010; 94660; 94762; 96361; 96374; 96375; 97166; 97530; 99285-25; A9270; J1650; J1940; J2405; J7030